=== PATIENT | female | born 1965 | race African-American/Black ===

== ENCOUNTER 2017-01-03 05:18 | Inpatient (IN) | payer OTHER ==
--- NOTE | 2017-01-02 16:32 | Diagnostic Imaging Report ---
Indications: Needs long-term IV access Technique: Ultrasound confirms patent compressible left brachial vein. Total sterile technique, including sterile probe cover and sterile gel, hat, mask,, sterile gown, large sterile drape, and preparation with 2% chlorhexidine utilized. Local anesthesia with 1% lidocaine. Under real-time ultrasound guidance, puncture brachial vein using 21-gauge needle, documented and archived, passage 0.018 guidewire under direct fluoroscopy, which was used to determine appropriate catheter length, exchange for 5 Filipino peel-away sheath. 5 Filipino Bard dual-lumen power PICC cut to 40 cm. It was inserted through the peel-away sheath. Peel-away sheath and guidewire removed. Catheter fixed to the skin. Both catheter ports aspirated and flushed. Patient tolerated procedure well, without immediate complication. Digital radiograph documents satisfactory catheter tip position, at the cavoatrial junction. Total fluoroscopy time 0.5 minutes. Total dose area product 34 dGycm2 Impression: Successful placement of PICC under sonographic and fluoroscopic guidance, as described above.
[~2017-01-03] VITALS: Ht 162.6 cm; Wt 76.2 kg
[2017-01-03] VITALS (12 sets, daily range): BP systolic 142–189; BP diastolic 67–92
[2017-01-03] MEDS ORDERED: XANAX2 MG ORAL (06:07)
[2017-01-03] MEDS ORDERED: SOMA350 MG PO (06:07)
[2017-01-03] MEDS ORDERED: Bacitracin 50000 Units Vial ONE ×2 (06:34→09:44)
[2017-01-03] MEDS ORDERED: Bupivacaine w/Epi 0.5% 30ml Vial INJ ONE (06:34)
[2017-01-03] MEDS ORDERED: fentaNYL 100 mcg/2 mL IV ONE (07:00)
[2017-01-03] MEDS ORDERED: Lidocaine 1% MPF 10mg/ml 5ml ONE (07:00)
[2017-01-03] MEDS ORDERED: Sodium Chloride 10ml vial INJ ONE (07:00)
[2017-01-03] MEDS ORDERED: LR 1000ml ONE (07:00)
[2017-01-03] MEDS ORDERED: NS Irrig 1000ml ONE (07:00)
[2017-01-03] MEDS ORDERED: Propofol 1,000mg/ 100ml btl IV ONE (07:00)
[2017-01-03] MEDS ORDERED: Sterile Water Irrig 1000ml IRRIG ONE (07:00)
[2017-01-03] MEDS ORDERED: Dexamethasone 4mg/ml vial ONE (07:00)
[2017-01-03] MEDS ORDERED: Alfentanil 2ml Inj ONE (07:00)
[2017-01-03] MEDS ORDERED: LR 1000ml 1,000 ML IVLG SCH (07:28)
--- NOTE | 2017-01-03 07:28 | Anethesia Preoperative Eval ---
Anesthesia Pre-op PMH/ROS General Date of Evaluation: Jan 03, 2017 Time of Evaluation: 07:11 Anesthesiologist: Brian ASA Score: ASA 3 Mallampati Score Class I : Soft palate, uvula, fauces, pillars visible Class II: Soft palate, uvula, fauces visible Class III: Soft palate, base of uvula visible Class IV: Only hard plate visible Mallampati Classification: Class III Surgeon: Omar Diagnosis: Cervical CA Surgical Procedure: Replacement IPG Anesthesia History: none Family History: no anesthesia problems Allergies: Coded Allergies: AMOXICILLIN (Verified Allergy, Severe, 01/03/17) HIVES HYDROMORPHONE (Verified Allergy, Severe, 01/03/17) GENERAL SKIN SORES PENICILLINS (Verified Allergy, Severe, 01/03/17) hives BUPROPION (Verified Allergy, Unknown, 01/08/10) IODINE (Verified Allergy, Unknown, 01/08/10) PAROXETINE (Verified Allergy, Unknown, 01/08/10) PHENYTOIN (Verified Allergy, Unknown, 01/08/10) Medications: see eMAR Past Medical History Cardiovascular: Reports: HTN Pulmonary: Reports: asthma Neurologic/Psychiatric: Reports: depression/anxiety, other - Seizures Hematology/Immune: Reports: anemia, other - Cervical CA Anesthesia Pre-op Phys. Exam Physician Exam Last Vital Signs Date Time Temp Pulse Resp B/P (MAP) Pulse Ox O2 Delivery O2 Flow Rate FiO2 01/03/17 06:17 97.1 60 18 142/71 99 Room Air Constitutional: NAD Neurologic: CN 2-12 intact Cardiovascular: RRR Respiratory: CTA Gastrointestinal: S/NT/ND Airway Exam Mallampati Score: Class III MO: limited ROM: limited Teeth: missing Anesthesia Pre-op A/P Risk Assessment & Plan Assessment: ASA 3 Plan: GA, BIS Status Change Before Surgery: No Pre-Antibiotics Dru grams Ancef IV Given Within 1 Hr of Incision: Yes Time Given: 07:21 Baldomero Torres MD Jan 03, 2017 07:28
[2017-01-03] MEDS ORDERED: Midazolam 2mg/2ml Inj IVP PRN (07:30)
[2017-01-03] MEDS ORDERED: Atropine Inj 1mg/10ml Syr IV PRN (07:30)
[2017-01-03] MEDS ORDERED: fentaNYL 100 mcg/2 mL IV PRN (07:30)
[2017-01-03] MEDS ORDERED: Ketorolac 30mg Inj IV PRN (07:30)
[2017-01-03] MEDS ORDERED: DiphenhydrAMINE 50mg/ml Inj IVP PRN (07:30)
[2017-01-03] MEDS ORDERED: LORazepam Inj 2mg/ml 1ml IV PRN ×2 (07:30→17:15)
[2017-01-03] MEDS ORDERED: Metoclopramide 10mg/2ml Inj IVP PRN (07:30)
[2017-01-03] MEDS ORDERED: Ketorolac 60mg Inj IV PRN (07:30)
[2017-01-03] MEDS ORDERED: Meperidine 25mg/0.5ml Inj (FOR RIGORS ONLY) IV PRN (07:30)
[2017-01-03] MEDS ORDERED: Pantoprazole Inj ONE (07:35)
--- NOTE | 2017-01-03 07:51 | Immediate Post-Op Evaluation ---
Immediate Post-Op Evalulation Immediate Post-Op Evalulation Procedure: Replacement IPG Date of Evaluation: Jan 03, 2017 Time of Evaluation: 09:33 IV Fluids: 500 LR Blood Products: 0 Estimated Blood Loss: 7 Urinary Output: 0 Blood Pressure Systolic: 143 Blood Pressure Diastolic: 86 Pulse Rate: 77 Respiratory Rate: 16 O2 Sat by Pulse Oximetry: 100 Temperature (Fahrenheit): 97.1 Pain Score (1-10): 3 Nausea: No Vomiting: No Complications 0 Patient Status: awake, reacts, patent, extubated, none Hydration Status: adequate Dru Grams Ancef IV Given Within 1 Hr of Incision: Yes Time Given: 07:21 Baldomero Torres MD Jan 03, 2017 07:51
--- NOTE | 2017-01-03 08:59 | Pre-Procedure Note/Attestation ---
Pre-Procedure Note/Attestation Complete Prior to Procedure Planned Procedure: right Procedure Narrative: her old drug delivery system has reached end of life and needs to be exchanged. Indications for Procedure Pre-Operative Diagnosis: chronic pain syndrome and history of CRPS Attestation I attest that I discussed the nature of the procedure; its benefits; risks and complications; and alternatives (and the risks and benefits of such alternatives ), prior to the procedure, with the patient (or the patient's legal veterans service representative). I attest that, if there was a reasonable possibility of needing a blood transfusion, the patient (or the patient's legal veterans service representative) was given the [place] Department [employer] Services standardized written summary, pursuant to the Mahendra [place] Blood Safety Act ([place] Health and Safety Code # 1645, as amended). I attest that I re-evaluated the patient just prior to the surgery and that there has been no change in the patient's H&P, except as documented below: JESSE JIMENEZ Jan 03, 2017 08:59
--- NOTE | 2017-01-03 09:24 | 48 Hour Post Anesthesia Eval ---
Post Anesthesia Evaluation Procedure: Replacement Pain Pump Date of Evaluation: Jan 03, 2017 Time of Evaluation: 11:46 Blood Pressure Systolic: 141 0: 72 Pulse Rate: 67 Respiratory Rate: 18 Temperature (Fahrenheit): 97.1 O2 Sat by Pulse Oximetry: 100 Airway: patent Nausea: No Vomiting: No Pain Intensity: 2 Hydration Status: adequate Cardiopulmonary Status: Stable Mental Status/LOC: patient returned to baseline Follow-up Care/Observations: 0 Post-Anesthesia Complications: 0 Follow-up care needed: ready to discharge Baldomero Torres MD Jan 03, 2017 09:24
[2017-01-03] MEDS ORDERED: D5 1/2NS w/KCl 20mEq 1,000 ML IV SCH (16:00)
[2017-01-03] MEDS: ceFAZolin sod 1 GM in D5W 55 ML IV SCH (16:28)
[2017-01-03] MEDS ORDERED: Zolpidem 5mg tab ORAL PRN ×2 (17:15→21:00)
[2017-01-03] MEDS ORDERED: Miralax 17gm pkt ORAL PRN (17:15)
[2017-01-03] MEDS ORDERED: Mylanta II UD 30ml ORAL PRN (17:15)
--- NOTE | 2017-01-03 17:18 | History and Physical ---
History of Present Illness General Date patient seen: Jan 03, 2017 Present Illness HPI 51 year old female with hx of chronic pain, migraine, admitted for replacement of IPG machine, since it reached end of its life. Post surgery, pt is complaining of migraine now. Allergies: Coded Allergies: AMOXICILLIN (Verified Allergy, Severe, 01/03/17) HIVES HYDROMORPHONE (Verified Allergy, Severe, 01/03/17) GENERAL SKIN SORES PENICILLINS (Verified Allergy, Severe, 01/03/17) hives BUPROPION (Verified Allergy, Unknown, 01/08/10) IODINE (Verified Allergy, Unknown, 01/08/10) PAROXETINE (Verified Allergy, Unknown, 01/08/10) PHENYTOIN (Verified Allergy, Unknown, 01/08/10) Medication History Scheduled Alprazolam* (Xanax*), 2 MG ORAL FOUR, (Reported) Carisoprodol* (Soma*), 350 MG PO Q4, (Reported) Patient History Healthcare decision maker Resuscitation status Full Code Advanced Directive on File No Past Medical/Surgical History Past Medical/Surgical History: (1) Chronic pain (2) Migraine (3) Fibromyalgia (4) Osteoarthritis cervical spine Review of Systems All Other Systems: negative except mentioned in HPI Physical Exam General Appearance: WD/WN Lines, tubes and drains: peripheral HEENT: normocephalic, atraumatic Neck: non-tender, normal alignment Respiratory/Chest: chest wall non-tender, lungs clear Cardiovascular/Chest: normal peripheral pulses, normal rate Abdomen: normal bowel sounds, non tender, hyperactive bowel sounds Genitourinary/Rectal: normal genital exam, heme negative stool Extremities: non-tender Last 24 Hour Vital Signs Date Time Temp Pulse Resp B/P (MAP) Pulse Ox O2 Delivery O2 Flow Rate FiO2 01/03/17 11:13 97.4 80 18 171/82 99 Nasal Cannula 2.0 01/03/17 10:20 97.4 70 25 151/67 100 Nasal Cannula 3.0 01/03/17 10:15 71 28 161/77 100 Nasal Cannula 3.0 01/03/17 10:10 182/89 01/03/17 10:05 77 25 179/71 100 Nasal Cannula 3.0 01/03/17 10:00 80 25 175/88 98 Nasal Cannula 3.0 01/03/17 09:50 75 24 187/92 99 Nasal Cannula 3.0 01/03/17 09:40 69 26 184/87 100 Simple Mask 6.0 01/03/17 09:40 184/87 01/03/17 09:30 71 21 189/90 99 Simple Mask 6.0 01/03/17 09:25 75 23 163/88 99 Simple Mask 6.0 01/03/17 09:24 67 18 100 01/03/17 09:22 97.1 77 19 143/86 99 Simple Mask 6.0 01/03/17 09:22 77 16 100 01/03/17 06:17 97.1 60 18 142/71 99 Room Air Intake and Output 01/03/17 01/04/17 19:00 07:00 Intake Total 850 ml Output Total 870 ml Balance -20 ml Intake IV Total 850 ml Output Urine Total 850 ml Estimated Blood Loss 20 ml Height (Feet): 5 Height (Inches): 4.00 Weight (Pounds): 168 Medications Current Medications Medications (Trade) Dose Ordered Sig/Aracelis Route PRN Reason Start Time Stop Time Status Last Admin Dose Admin Acetaminophen (Tylenol) 650 mg Q4H PRN ORAL fever 01/03/17 17:15 02/02/17 17:14 UNV Al Hydroxide/Mg Hydroxide (Mylanta II) 30 ml Q6H PRN ORAL dyspepsia 01/03/17 17:15 02/02/17 17:14 UNV Al Hydroxide/Mg Hydroxide (Mylanta) 15 ml Q6H PRN ORAL DYSPEPSIA 01/03/17 15:00 02/02/17 14:59 Cefazolin Sodium 1 gm/Dextrose 55 ml @ 110 mls/hr Q8H IV 01/03/17 16:30 01/04/17 00:59 01/03/17 16:28 Dextrose (Dextrose 50%) STAT PRN IV Hypoglycemia 01/03/17 17:15 02/02/17 17:14 UNV Dextrose/ Electrolytes 1,000 ml @ 0 mls/hr Q0M IV 01/03/17 16:00 02/02/17 15:59 Diphenhydramine HCl (Benadryl) 25 mg Q8H PRN ORAL Itching/Pruritis 01/03/17 15:00 02/02/17 14:59 Docusate Sodium (Colace) 100 mg TWICE A DAY ORAL 01/03/17 18:00 02/02/17 17:59 Lorazepam (Ativan 2mg/ml 1ml) 0.5 mg Q4H PRN IV For Anxiety 01/03/17 17:15 01/10/17 17:14 UNV Morphine Sulfate (Morphine Sulfate) 4 mg Q4H PRN IVP For Pain 01/03/17 15:00 01/10/17 14:59 Ondansetron HCl (Zofran) 4 mg Q6H PRN IVP Nausea & Vomiting 01/03/17 15:00 02/02/17 14:59 Ondansetron HCl (Zofran) 4 mg Q6H PRN IVP Nausea & Vomiting 01/03/17 17:15 02/02/17 17:14 UNV Polyethylene Glycol (Miralax) 17 gm HSPRN PRN ORAL Constipation 01/03/17 17:15 02/02/17 17:14 UNV Zolpidem Tartrate (Ambien) 5 mg HSPRN PRN ORAL Insomnia 01/03/17 17:15 01/10/17 17:14 UNV Zolpidem Tartrate (Ambien) 5 mg QHS PRN ORAL Insomnia 01/03/17 21:00 01/10/17 20:59 Assessment/Plan Problem List: (1) Replacement of IPG machine (2) Migraine ICD Codes: G43.909 - Migraine, unspecified, not intractable, without status migrainosus SNOMED: 35301508 (3) Fibromyalgia ICD Codes: M79.7 - Fibromyalgia SNOMED: 293993751 (4) Chronic pain ICD Codes: G89.29 - Other chronic pain SNOMED: 56275035 (5) Osteoarthritis cervical spine ICD Codes: M47.812 - Spondylosis without myelopathy or radiculopathy, cervical region SNOMED: 895226876 Assessment/Plan symptomatic treatment post op care imitrex for migraine ANSELMO UGARTE Jan 03, 2017 17:18
[2017-01-03] MEDS ORDERED: SUMAtriptan 100mg tab ORAL PRN (17:45)
[2017-01-03] MEDS: Imipramine 10mg tab ORAL SCH (18:30)
[2017-01-03] MEDS: Docusate 100mg cap ORAL SCH (18:30)
[2017-01-04] MEDS: Morphine Sulfate 4mg/ml Inj IVP PRN ×4 (00:10→14:53)
[2017-01-04] MEDS: ceFAZolin sod 1 GM in D5W 55 ML IV SCH (01:15)
[2017-01-04 04:00] VITALS: BP 163/86
[2017-01-04 07:29] LABS: ALANINE AMINOTRANSFERASE 10 U/L (3-33); ANION GAP 8 (5-15); ASPARTATE AMINO TRANSFERASE 12 U/L (5-40); CALCIUM 8.5 mg/dL (8.6-10.2); CARBON DIOXIDE 30 mEQ/L (20-30); CHLORIDE 103 mEQ/L (98-107); CHOLESTEROL 191 mg/dL (< 200); CHOLESTEROL/HDL RATIO 6.8 (3.3-4.4); CREATININE 0.8 mg/dL (0.5-0.9); GLOMERULAR FILTRATION RATE > 60 mL/min (>60); HEMOLYSIS 1; LDL CHOLESTEROL CALC 149 mg/dL (60-99); POTASSIUM 3.6 mEQ/L (3.4-4.9); SODIUM 141 mEQ/L (135-145); TOTAL PROTEIN 6.4 g/dL (6.6-8.7)
[2017-01-04 07:30] LABS: BASOPHILS % (AUTO) 0.7 % (0.0-2.0); EOSINOPHILS % (AUTO) 2.2 % (0.0-3.0); MEAN CORPUSCULAR HEMOGLOBIN 26.7 PG (27.0-31.0); MEAN CORPUSCULAR HGB CONC 32.2 G/DL (32.0-36.0); MEAN CORPUSCULAR VOLUME 83 FL (80-99); MEAN PLATELET VOLUME 7.1 FL (6.5-10.1); MONOCYTES % (AUTO) 7.1 % (1.0-10.0); NEUTROPHILS % (AUTO) 59.1 % (45.0-75.0); PLATELET COUNT 204 K/UL (150-450); RED BLOOD COUNT 4.38 M/UL (4.20-5.40); RED CELL DISTRIBUTION WIDTH 13.3 % (11.6-14.8); WHITE BLOOD COUNT 8.6 K/UL (4.8-10.8)
[2017-01-04 08:00] VITALS: BP 161/71
--- NOTE | 2017-01-04 08:00 | Operative Note - Dictated ---
DATE OF OPERATION: 01/03/2017 PREOPERATIVE DIAGNOSIS: End of life of implantable drug delivery pump. POSTOPERATIVE DIAGNOSIS: End of life of implantable drug delivery pump. PROCEDURE: Removal of old implantable drug delivery pump with replacement with new implantable drug delivery pump. COMPLICATIONS: None. ANESTHETIC: General anesthesia. ANESTHESIOLOGIST: Baldomero Torres M.D. SURGEON: Micky Nelson M.D. LVN HOME HEALTH: Jak Davis M.D. BLOOD LOSS: Negligible. INDICATION FOR PROCEDURE: The patient has a chronic drug intrathecal delivery system for pain control. It has reached end of life and she is admitted for removal of the old implantable pump and replacement with a new pump as the old pump has reached end of life. She understood potential complications to include bleeding, infection, seroma, and anesthetic complications. She signed informed consent and received 2 g of IV Ancef prior to the operative procedure. PROCEDURE IN DETAIL: The patient was brought to the operating room. She was placed supine. The abdomen was prepped and draped in meticulous sterile fashion. The implantable pump site was identified in the right upper quadrant/flank area and after thorough prep, the area was infiltrated with 10 mL of 0.5% bupivacaine with epinephrine. An #11 blade scalpel was then used to make an incision over the old scar. The subcutaneous tissue was dissected. The old pump was removed after cutting the 2-0 Ethibond sutures that had secured the pump in the pocket site. The old pump was removed from the incision without damaging the catheter. The old drug from the pump was aspirated and placed into the new pump, which was then primed on the side of the operating room table. Now waiting for the pump to prime, the pump site was irrigated copiously with antibiotic solution. Old suture was removed. Anchoring 2-0 Ethibond sutures were placed into the deep fascia. Once the pump was primed, the old pump was disconnected from the distal catheter and secured to the new implantable generator. At that point, the new generator was secured to the deep tissue, tying off with the 2-0 Ethibond sutures that we placed to the side loops of the pump. At that point, there was some further dissection to free up the edges and provide adequate space, and at that point, the incision was closed with interrupted 3-0 Vicryl and 3-0 Monocryl subcuticular sutures. Sterile dressings were applied. She will be admitted for overnight observation. She will be provided with prophylactic antibiotics. She is scheduled for pump refill on 01/24/2017. Micky Nelson M.D. DR: COMPA JOB#: [id number] CC: GOMEZ
[2017-01-04] MEDS: Imipramine 10mg tab ORAL SCH ×3 (09:00→12:53)
[2017-01-04] MEDS: Docusate 100mg cap ORAL SCH (09:46)
--- NOTE | 2017-01-04 15:05 | Pulmonology Progress Note ---
Assessment/Plan Problems: (1) Replacement of IPG machine (2) Migraine (3) Fibromyalgia (4) Chronic pain (5) Osteoarthritis cervical spine Assessment/Plan improving dc home with f/u with primary no Migraine any more Subjective ROS Limited/Unobtainable: No Constitutional: Reports: no symptoms HEENT: Repors: no symptoms Respiratory: Reports: no symptoms Allergies: Coded Allergies: AMOXICILLIN (Verified Allergy, Severe, 01/03/17) HIVES HYDROMORPHONE (Verified Allergy, Severe, 01/03/17) GENERAL SKIN SORES PENICILLINS (Verified Allergy, Severe, 01/03/17) hives BUPROPION (Verified Allergy, Unknown, 01/08/10) IODINE (Verified Allergy, Unknown, 01/08/10) PAROXETINE (Verified Allergy, Unknown, 01/08/10) PHENYTOIN (Verified Allergy, Unknown, 01/08/10) Objective Last 24 Hour Vital Signs Date Time Temp Pulse Resp B/P (MAP) Pulse Ox O2 Delivery O2 Flow Rate FiO2 01/04/17 10:16 98.0 01/04/17 09:47 161/71 01/04/17 08:00 98.0 18 161/71 96 Room Air 01/04/17 04:00 98.2 54 18 163/86 97 Room Air 01/04/17 00:11 176/74 01/03/17 20:00 97.6 57 18 174/79 97 Room Air General Appearance: WD/WN HEENT: normocephalic, atraumatic Respiratory/Chest: chest wall non-tender, lungs clear Cardiovascular: normal peripheral pulses, normal rate Abdomen: normal bowel sounds, soft, non tender Microbiology Date/Time Source Procedure Growth Status 01/03/17 08:00 Wound AFB Specimen Processing Tissue - Final Resulted 01/03/17 08:00 Wound Pending Resulted 01/03/17 08:00 Wound AFB Specimen Processing Tissue Pending Resulted 01/03/17 08:00 Wound AFB Smear Concentration Pending Resulted 01/03/17 08:00 Wound Pending Resulted 01/03/17 08:00 Wound Acid Fast Bacilli Smear - Final Resulted 01/03/17 08:00 Wound Pending Resulted 01/03/17 08:00 Wound Acid Fast Bacilli Culture Pending Resulted 01/03/17 08:00 Wound Acid Fast Bacilli (AFB) Probe Pending Resulted 01/03/17 08:00 Wound M. tuberculosis Complex Interpretat Pending Resulted 01/03/17 08:00 Wound Mycobacterium avium Complex Pending Resulted 01/03/17 08:00 Wound Mycobacterium k[place]ii DNA Probe (M Pending Resulted 01/03/17 08:00 Wound Mycobacterium gordanae DNA Probe (M Pending Resulted 01/03/17 08:00 Wound Acid Fast Bacilli (AFB) Probe Pending Resulted 01/03/17 08:00 Wound Organism ID (Sequencing)(CHICO) Pending Resulted 01/03/17 08:00 Wound Antimicrobic Susceptibility Pending Resulted 01/03/17 08:00 Wound Organism ID (Sequencing 2)(CHICO) Pending Resulted 01/03/17 08:00 Wound Pending Resulted 01/03/17 08:00 Wound Pending Resulted 01/03/17 08:00 Wound Pending Resulted 01/03/17 08:00 Wound Pending Resulted 01/03/17 08:00 Wound Pending Resulted 01/03/17 08:00 Wound Pending Resulted 01/03/17 08:00 Wound Pending Resulted 01/03/17 08:00 Wound Pending Resulted 01/03/17 08:00 Wound Pending Resulted 01/03/17 08:00 Wound Nocardia/Actinomyces Susceptibility Pending Resulted 01/03/17 08:00 Wound Organism Identification Pending Resulted 01/03/17 08:00 Wound Pending Resulted 01/03/17 08:00 Wound Pending Resulted 01/03/17 08:00 Wound Pending Resulted 01/03/17 08:00 Wound Pending Resulted 01/03/17 08:00 Wound Pending Resulted 01/03/17 08:00 Wound Pending Resulted 01/03/17 08:00 Wound Pending Resulted 01/03/17 08:00 Wound Pending Resulted 01/03/17 08:00 Wound Pending Resulted 01/03/17 08:00 Wound Pending Resulted 01/03/17 08:00 Wound Pending Resulted 01/03/17 08:00 Wound Pending Resulted 01/03/17 08:00 Wound Pending Resulted 01/03/17 08:00 Wound Pending Resulted 01/03/17 08:00 Wound Pending Resulted 01/03/17 08:00 Wound Pending Resulted 01/03/17 08:00 Wound Pending Resulted 01/03/17 08:00 Wound Pending Resulted 01/03/17 08:00 Wound Pending Resulted 01/03/17 08:00 Wound Pending Resulted 01/03/17 08:00 Wound Pending Resulted 01/03/17 08:00 Wound Pending Resulted 01/03/17 08:00 Wound Pending Resulted 01/03/17 08:00 Wound Pending Resulted 01/03/17 08:00 Wound Pending Resulted 01/03/17 08:00 Wound Pending Resulted 01/03/17 08:00 Wound Pending Resulted 01/03/17 08:00 Wound Pending Resulted 01/03/17 08:00 Wound Pending Resulted 01/03/17 08:00 Wound Acid Fast Bacilli (AFB) Probe Pending Resulted 01/03/17 08:00 Abdomen Gram Stain - Final Resulted 01/03/17 08:00 Abdomen Aerobic Culture - Preliminary NO GROWTH AFTER 24 HOURS Resulted 01/03/17 08:00 Abdomen Anaerobic Culture Pending Resulted Laboratory Tests 01/04/17 06:20: White Blood Count 8.6, Red Blood Count 4.38, Hemoglobin 11.7L, Hematocrit 36.3L , Mean Corpuscular Volume 83, Mean Corpuscular Hemoglobin 26.7L, Mean Corpuscular Hemoglobin Concent 32.2, Red Cell Distribution Width 13.3, Platelet Count 204, Mean Platelet Volume 7.1, Neutrophils (%) (Auto) 59.1, Lymphocytes (% ) (Auto) 31.0, Monocytes (%) (Auto) 7.1, Eosinophils (%) (Auto) 2.2, Basophils ( %) (Auto) 0.7, Sodium Level 141, Potassium Level 3.6, Chloride Level 103, Carbon Dioxide Level 30, Anion Gap 8, Blood Urea Nitrogen 10, Creatinine 0.8, Estimat Glomerular Filtration Rate > 60, Glucose Level 119H, Calcium Level 8.5L , Total Bilirubin < 0.2, Aspartate Amino Transf (AST/SGOT) 12, Alanine Aminotransferase (ALT/SGPT) 10, Alkaline Phosphatase 110H, Total Protein 6.4L, Albumin 3.2L, Globulin 3.2, Albumin/Globulin Ratio 1.0, Triglycerides Level 72, Cholesterol Level 191, LDL Cholesterol 149H, HDL Cholesterol 28, Cholesterol/ HDL Ratio 6.8H, Thyroid Stimulating Hormone (TSH) 1.440 Current Medications Medications (Trade) Dose Ordered Sig/Aracelis Route PRN Reason Start Time Stop Time Status Last Admin Dose Admin Acetaminophen (Tylenol) 650 mg Q4H PRN ORAL fever 01/03/17 17:15 02/02/17 17:14 Al Hydroxide/Mg Hydroxide (Mylanta II) 30 ml Q6H PRN ORAL dyspepsia 01/03/17 17:15 02/02/17 17:14 Clonidine HCl (Catapres) 0.1 mg Q6H PRN ORAL For High Blood Pressure 01/03/17 23:00 02/02/17 22:59 01/04/17 09:47 Dextrose (Dextrose 50%) STAT PRN IV Hypoglycemia 01/03/17 17:15 02/02/17 17:14 Dextrose/ Electrolytes 1,000 ml @ 0 mls/hr Q0M IV 01/03/17 16:00 02/02/17 15:59 Diphenhydramine HCl (Benadryl) 25 mg Q8H PRN ORAL Itching/Pruritis 01/03/17 15:00 02/02/17 14:59 Docusate Sodium (Colace) 100 mg TWICE A DAY ORAL 01/03/17 18:00 02/02/17 17:59 01/04/17 09:46 Imipramine HCl (Tofranil) 25 mg THREE TIMES A DAY ORAL 01/03/17 18:00 02/02/17 17:59 01/03/17 18:30 Lorazepam (Ativan 2mg/ml 1ml) 0.5 mg Q4H PRN IV For Anxiety 01/03/17 17:15 01/10/17 17:14 Morphine Sulfate (Morphine Sulfate) 4 mg Q4H PRN IVP For Pain 01/03/17 15:00 01/10/17 14:59 01/04/17 14:53 Ondansetron HCl (Zofran) 4 mg Q6H PRN IVP Nausea & Vomiting 01/03/17 15:00 02/02/17 14:59 01/04/17 12:49 Polyethylene Glycol (Miralax) 17 gm HSPRN PRN ORAL Constipation 01/03/17 17:15 02/02/17 17:14 Sumatriptan Succinate (Imitrex) 100 mg DAILYPRN PRN ORAL migraine 01/03/17 17:45 10/26/17 17:44 Zolpidem Tartrate (Ambien) 5 mg HSPRN PRN ORAL Insomnia 01/03/17 17:15 01/10/17 17:14 ANSELMO UGARTE Jan 04, 2017 15:05
[2017-01-04 16:10] VITALS: BP 163/82
--- NOTE | 2017-01-05 15:28 | Discharge Summary ---
Discharge Summary Hospital Course Date of Admission Jan 03, 2017 at 13:56 Date of Discharge Jan 04, 2017 at 16:31 Admitting Diagnosis HPI Christi Wan is a 51 year old female who was admitted on Jan 03, 2017 at 13: 56 for End Of Life Ipt / Poor Venous Access Hospital Course [id number] Discharge Discharge Disposition Patient was discharged to Home (01) Discharge Diagnoses: Ainsley Lan NP Jan 05, 2017 15:28
--- NOTE | 2017-01-06 03:45 | Discharge Summary 2 SIG ---
DATE OF ADMISSION: 01/03/2017 DATE OF DISCHARGE: 01/04/2017 SURGEON: Micky Nelson M.D. Brief Hospital Course: The patient is a 51-year-old female with history of chronic pain and migraine, was admitted for replacement of implantable delivery pump. The patient has chronic drug intrathecal delivery system for pain control and it has reached end of life. She was admitted on 01/03/2017 and underwent removal of old implantable drug delivery pump with replacement of a new implantable drug delivery pump by Dr. Nelson. Prior to surgery a PICC was inserted for IV access. She was continued on IV hydration. Diet was eventually advanced. PICC line was removed. The patient was eventually discharged home to follow up with primary MD. FINAL DIAGNOSES: 1. Replacement of implantable drug delivery pump. 2. Fibromyalgia. 3. Chronic pain. 4. Migraine headaches. 5. Osteoarthritis of the cervical spine. DISPOSITION: The patient was discharged home. DISCHARGE MEDICATIONS: Refer to medication list. FOLLOWUP: The patient was advised to follow up with PMD in a week. Oniel Macias M.D. I have been assigned to dictate discharge summary on this account and I was not involved in the patient's management. Ainsley Lan N.P. DR: KATLYN JOB#: [id number] CC: GOMEZ
== END 2017-01-04 16:31 | disposition home or self-care (01) | DRG 941 ==
LOC: SDS 05:18 → 3E 13:56
PROC: 0JH80VZ Insertion of Infusion Pump into Abdomen Subcutaneous Tissue and Fascia, Open Approach (ICD-10-PCS; principal; 2017-01-03 07:00)
PROC: 0JPT0VZ Removal of Infusion Pump from Trunk Subcutaneous Tissue and Fascia, Open Approach (ICD-10-PCS; principal; 2017-01-03 07:00)
DX: Z45.1 Encounter for adjustment and management of infusion pump (principal); I10 Essential (primary) hypertension; G89.4 Chronic pain syndrome; I87.2 Venous insufficiency (chronic) (peripheral); M47.892 Other spondylosis, cervical region; M47.896 Other spondylosis, lumbar region; E66.9 Obesity, unspecified; Z88.6 Allergy status to analgesic agent; Z88.0 Allergy status to penicillin; Z88.8 Allergy status to other drugs, medicaments and biological substances; M79.7 Fibromyalgia; G43.909 Migraine, unspecified, not intractable, without status migrainosus
CPT/HCPCS: 36415; 36569; 76937; 80053; 80061; 84443; 85025; 87070; 87075; 87116; 87205; 94003; 94150; J2405; J3490

== ENCOUNTER 2017-11-09 14:54 | Inpatient (IN) | payer MEDICARE, OTHER ==
[~2017-11-09] VITALS: Ht 162.6 cm; Wt 92.7 kg
[~2017-11-09 14:54] MED LIST: SOMA350 MG PO; XANAX2 MG ORAL
[2017-11-09 15:11] VITALS: BP 154/73
[2017-11-09] MEDS ORDERED: Lidocaine 1% Plain 30 ml INJ ONE (15:30)
[2017-11-09] MEDS ORDERED: Heparin 2000 units/Ns 1000ml INJ ONE (15:30)
[2017-11-09] MEDS: Dyna-Hex 2% Top Sol 2oz TOPIC SCH ×2 (15:46→20:38)
--- NOTE | 2017-11-09 16:41 | Pre-Procedure Note/Attestation ---
Pre-Procedure Note/Attestation Complete Prior to Procedure Planned Procedure: not applicable Procedure Narrative: PICC line Indications for Procedure Pre-Operative Diagnosis: need IV access Attestation I attest that I discussed the nature of the procedure; its benefits; risks and complications; and alternatives (and the risks and benefits of such alternatives ), prior to the procedure, with the patient (or the patient's legal sales representative uniforms). I attest that I re-evaluated the patient just prior to the surgery and that there has been no change in the patient's H&P, except as documented below: Iraj Kessler M.D. Nov 09, 2017 16:41
--- NOTE | 2017-11-09 17:02 | Diagnostic Imaging Report ---
Indications: Needs long-term IV access Technique: Ultrasound confirms patent compressible right basilic vein. Total sterile technique, including sterile probe cover and sterile gel, hat, mask,, sterile gown, large sterile drape, and preparation with 2% chlorhexidine utilized. Local anesthesia with 1% lidocaine. Under real-time ultrasound guidance, puncture the basilic vein using 21-gauge needle, documented and archived, passage 0.018 guidewire under direct fluoroscopy, which was used to determine appropriate catheter length, exchange for 5 Malaysian peel-away sheath. 5 Malaysian dual-lumen power PICC cut to 3 5 cm. It was inserted through the peel-away sheath. Peel-away sheath and guidewire removed. Catheter fixed to the skin. Both catheter ports aspirated and flushed. Patient tolerated procedure well, without immediate complication. Digital radiograph documents satisfactory catheter tip position, at the cavoatrial junction. Total fluoroscopy time 0.2 minutes. Total dose area product 13 dGycm2 Impression: Successful placement of 5 Malaysian double-lumen PICC under sonographic and fluoroscopic guidance, as described above.
[2017-11-09] MEDS ORDERED: Morphine Sulfate 2mg/ml Inj(IV/IM USE ONLY) IVP ONE (17:15)
--- NOTE | 2017-11-09 17:38 | Emergency Room Report ---
History of Present Illness General Chief Complaint: Pain Source: Patient Present Illness HPI 52 YO Female presents to the ED C/O 01/17 in severity exacerbation of her chronic back and neck pain x 4 days. pt. reports she is in pain management with Dr. Nelson and takes Morphine and Soma for her symptoms. pt. reports that possible epidural has been discussed as her pain is still not well controlled. pt. reports that she is ambulatory very slowly, however she is experiencing pain with attempts to sit on the toilet, getting into and out of her bed, and chairs. Pt. denies. saddle anesthesia. reports hx of uterine cancer. pt. reports that her morphine pump is not working as it should. reports multiple falls since last MRI, however aware per pt. Pt. reports requires a picc line. Pt. states that back injury is from workers comp. claim which just settled yesterday, and Dr. Nelson is unable to schedule her until next week. Pt. reports weakness with dexterity of both hands which has been progressive. Denies CP,SOB, sudden severe GRACE. denies abdominal pain. Allergies: Coded Allergies: AMOXICILLIN (Verified Allergy, Severe, 01/03/17) HIVES HYDROMORPHONE (Verified Allergy, Severe, 01/03/17) GENERAL SKIN SORES PENICILLINS (Verified Allergy, Severe, 01/03/17) hives BUPROPION (Verified Allergy, Unknown, 01/08/10) IODINE (Verified Allergy, Unknown, 01/08/10) PAROXETINE (Verified Allergy, Unknown, 01/08/10) PHENYTOIN (Verified Allergy, Unknown, 01/08/10) Patient History Past Medical History: see triage record, HTN, asthma, seizures Past Surgical History: other - intrathecal pump. Now: No Reviewed Nursing Documentation: PMH: Agreed; PSxH: Agreed Nursing Documentation-PMH Past Medical History: No History, Except For Hx Cardiac Problems: Yes Hx Hypertension: Yes Hx Asthma: Yes - SEASONAL Hx Cancer: Yes - UTERINE Hx Gastrointestinal Problems: Yes Hx Neurological Problems: Yes - HX MIGRAINES-LAST EPISODE A WEEK AGO Hx Seizures: Yes - LAST EPISODE AGE 26 Review of Systems All Other Systems: negative except mentioned in HPI Physical Exam Vital Signs Date Time Temp Pulse Resp B/P (MAP) Pulse Ox O2 Delivery O2 Flow Rate FiO2 11/09/17 15:03 98.2 54 22 154/73 95 Room Air 98.2 Sp02 EP Interpretation: reviewed, normal General Appearance: alert, GCS 15, non-toxic, mild distress Head: normocephalic, atraumatic ENT: hearing grossly normal, normal voice, other - ROM limited, pt. has torticolis to the left side. Neck: full range of motion, tender lateral - right lateral and midline cervical ttp. , tender midline Respiratory: chest non-tender, lungs clear, normal breath sounds, speaking full sentences Cardiovascular #1: regular rate, rhythm, no edema, normal capillary refill Genitourinary: other - no evidence of in continence. Musculoskeletal: back normal, normal range of motion, tender - TTP to the Lumbar spine midline and paraspinal bilaterally. Neurologic: alert, oriented x3, responsive, motor strength/tone normal, sensory intact, speech normal, other - Pt. has very staggared gait and uses assistive devices or door handles/arm of wheelchair. , grossly normal Psychiatric: judgement/insight normal Skin: normal color, no rash, warm/dry, well hydrated Medical Decision Making PA Attestation Dr. Garcia is my supervising Physician whom patient management has been discussed with. Diagnostic Impression: Primary Impression: Intractable back pain Additional Impressions: Cervical radiculopathy Fibromyalgia Chronic pain Qualified Codes: G89.4 - Chronic pain syndrome Physical tolerance to opiate drug Opiate dependence, continuous ER Course CC: 52 YO Female presents to the ED C/O 01/17 in severity exacerbation of her chronic back and neck pain x 4 days. pt. reports she is in pain management with Dr. Nelson and takes Morphine and Soma for her symptoms. pt. reports that possible epidural has been discussed as her pain is still not well controlled. pt. reports that she is ambulatory very slowly, however she is experiencing pain with attempts to sit on the toilet, getting into and out of her bed, and chairs. Pt. denies. saddle anesthesia. reports hx of uterine cancer. pt. reports that her morphine pump is not working as it should. reports multiple falls since last MRI, however aware per pt. Pt. reports requires a picc line. Pt. states that back injury is from workers comp. claim which just settled yesterday, and Dr. Nelson is unable to schedule her until next week. Pt. reports weakness with dexterity of both hands which has been progressive. Denies CP,SOB, sudden severe GRACE. denies abdominal pain. CURES REPORT: -2017-10-24 -CARISOPRODOL TAB 350 MG QTY 180, 30 day supply -2017-11-01 -ALPRAZOLAM TAB 2 MG QTY 67 - 2017-10-17 MORPHINE SULFATE POW QTY of 900 30 day supply All filled on the above dates, according to pharmacy /cures records pt. should not be out of her medications if she is taking them as prescribed. She should have adequate amount at this time. Ddx considered: epidural abscess, fracture, sprain/strain, meningitis, spinal chord injury, sciatica, cauda equina, Pyelonephritis, renal calculi just to name a few. Vital signs reviewed and are WNL during ED visit. Pt. is afebrile with no signs of infection No new symptoms other than pain unresponsive to previous methods, and pt. has depleted her allotment of pain medications this month. No saddle anesthesia noted, Pt. denies incontinence Neurovascular is intact ROM is limited due to pain and physical limitations * Tenderness to palpation to paraspinal muscles of the lower back with midline tenderness as well as cervical paraspinal muscles and midline. pain > on the right side of the posterior neck. pt. has some torticollis noted. pt. appears non-toxic and NAD. . *Pt. describes pain today as severe and radiates across the lower back. ORDERS: -CBC: Unremarkable -CMP: Unremarkable - UA: Pending INTERVENTIONS: - PICC line placement ordered -Morphine IVP Pt. reports she continues to have excruciating pain. D/w pt. that as her pain is uncontrolled at this time, and she is out of medications at home that she will be admitted for further evaluation, and control of her pain with strong opiate pain medication. d/w pt. will call Dr. Nelson DISPOSITION: at this time pt. will be admitted to Dr. Macias for intractable pain, opiate tolerance and dependence. Dr. Macias agreed to admit the pt. and to continue pt. care management. Labs Test 11/09/17 17:16 White Blood Count 6.8 K/UL (4.8-10.8) Red Blood Count 4.64 M/UL (4.20-5.40) Hemoglobin 11.8 G/DL (12.0-16.0) Hematocrit 36.4 % (37.0-47.0) Mean Corpuscular Volume 79 FL (80-99) Mean Corpuscular Hemoglobin 25.4 PG (27.0-31.0) Mean Corpuscular Hemoglobin Concent 32.3 G/DL (32.0-36.0) Red Cell Distribution Width 13.0 % (11.6-14.8) Platelet Count 191 K/UL (150-450) Mean Platelet Volume 7.7 FL (6.5-10.1) Neutrophils (%) (Auto) 46.7 % (45.0-75.0) Lymphocytes (%) (Auto) 39.9 % (20.0-45.0) Monocytes (%) (Auto) 7.2 % (1.0-10.0) Eosinophils (%) (Auto) 5.2 % (0.0-3.0) Basophils (%) (Auto) 1.0 % (0.0-2.0) Sodium Level 143 MMOL/L (136-145) Potassium Level 3.8 MMOL/L (3.5-5.1) Chloride Level 107 MMOL/L (98-107) Carbon Dioxide Level 29 MMOL/L (21-32) Anion Gap 7 mmol/L (5-15) Blood Urea Nitrogen 7 mg/dL (7-18) Creatinine 0.9 MG/DL (0.55-1.30) Estimat Glomerular Filtration Rate > 60 mL/min (>60) Glucose Level 111 MG/DL (74-106) Calcium Level 8.6 MG/DL (8.5-10.1) Total Bilirubin 0.2 MG/DL (0.2-1.0) Aspartate Amino Transf (AST/SGOT) 15 U/L (15-37) Alanine Aminotransferase (ALT/SGPT) 14 U/L (12-78) Alkaline Phosphatase 143 U/L (46-116) Total Protein 7.3 G/DL (6.4-8.2) Albumin 3.0 G/DL (3.4-5.0) Globulin 4.3 g/dL Albumin/Globulin Ratio 0.7 (1.0-2.7) Last Vital Signs Date Time Temp Pulse Resp B/P (MAP) Pulse Ox O2 Delivery O2 Flow Rate FiO2 11/09/17 15:11 98.2 84 22 154/73 95 Room Air 98.2 Disposition: ADMITTED INPATIENT Condition: Serious Referrals: Micky Nelson MD (PCP) Uma Kulkarni Nov 09, 2017 17:38
[2017-11-09 17:42] LABS: EOSINOPHILS % (AUTO) 5.2 % (0.0-3.0); HEMATOCRIT 36.4 % (37.0-47.0); HEMOGLOBIN 11.8 G/DL (12.0-16.0); LYMPHOCYTES % (AUTO) 39.9 % (20.0-45.0); MEAN CORPUSCULAR VOLUME 79 FL (80-99); MONOCYTES % (AUTO) 7.2 % (1.0-10.0); NEUTROPHILS % (AUTO) 46.7 % (45.0-75.0); PLATELET COUNT 191 K/UL (150-450); RED BLOOD COUNT 4.64 M/UL (4.20-5.40); WHITE BLOOD COUNT 6.8 K/UL (4.8-10.8)
[2017-11-09 17:58] LABS: ANION GAP 7 mmol/L (5-15); BLOOD UREA NITROGEN 7 mg/dL (7-18); CALCIUM 8.6 MG/DL (8.5-10.1); CARBON DIOXIDE 29 MMOL/L (21-32); CHLORIDE 107 MMOL/L (98-107); CREATININE 0.9 MG/DL (0.55-1.30); POTASSIUM 3.8 MMOL/L (3.5-5.1); SODIUM 143 MMOL/L (136-145)
[2017-11-09 18:03] LABS: ALANINE AMINOTRANSFERASE 14 U/L (12-78); ALBUMIN/GLOBULIN RATIO 0.7 (1.0-2.7); ALKALINE PHOSPHATASE 143 U/L (46-116); ASPARTATE AMINO TRANSFERASE 15 U/L (15-37); BILIRUBIN,TOTAL 0.2 MG/DL (0.2-1.0)
[2017-11-09 18:05] VITALS: BP 136/67
[2017-11-09 18:40] VITALS: BP 150/59
[2017-11-09] MEDS ORDERED: Mylanta II UD 30ml ORAL PRN (19:30)
[2017-11-09] MEDS ORDERED: Zolpidem 5mg tab ORAL PRN (19:30)
[2017-11-09] MEDS ORDERED: Miralax 17gm pkt ORAL PRN (19:30)
[2017-11-09] MEDS ORDERED: LORazepam Inj 2mg/ml 1ml IV PRN (19:30)
[2017-11-09] MEDS: Morphine Sulfate 4mg/ml Inj (IV USE ONLY) IVP PRN (20:39)
[2017-11-09] MEDS: Heparin 5000 units/ml inj SUBQ SCH (20:41)
[2017-11-09] MEDS ORDERED: HydrALAZINE 50mg tab ORAL PRN (20:45)
[2017-11-10] VITALS: BP 133/56
[2017-11-10] MEDS: Morphine Sulfate 4mg/ml Inj (IV USE ONLY) IVP PRN ×5 (01:12→22:33)
[2017-11-10] MEDS ORDERED: Morphine Sulfate 4mg/ml Inj (IV USE ONLY) IVP ONE (03:00)
[2017-11-10 04:00] VITALS: BP 97/66
[2017-11-10 06:38] LABS: EOSINOPHILS % (AUTO) 4.6 % (0.0-3.0); HEMATOCRIT 38.8 % (37.0-47.0); HEMOGLOBIN 12.3 G/DL (12.0-16.0); LYMPHOCYTES % (AUTO) 29.2 % (20.0-45.0); MEAN CORPUSCULAR VOLUME 80 FL (80-99); NEUTROPHILS % (AUTO) 59.2 % (45.0-75.0); PLATELET COUNT 193 K/UL (150-450); RED BLOOD COUNT 4.87 M/UL (4.20-5.40); RED CELL DISTRIBUTION WIDTH 12.8 % (11.6-14.8); WHITE BLOOD COUNT 7.6 K/UL (4.8-10.8)
[2017-11-10 07:07] LABS: ALANINE AMINOTRANSFERASE 23 U/L (12-78); ALBUMIN 3.1 G/DL (3.4-5.0); ALBUMIN/GLOBULIN RATIO 0.7 (1.0-2.7); ALKALINE PHOSPHATASE 139 U/L (46-116); ANION GAP 4 mmol/L (5-15); ASPARTATE AMINO TRANSFERASE 27 U/L (15-37); BILIRUBIN,TOTAL 0.3 MG/DL (0.2-1.0); BLOOD UREA NITROGEN 7 mg/dL (7-18); CALCIUM 8.3 MG/DL (8.5-10.1); CARBON DIOXIDE 31 MMOL/L (21-32); CHLORIDE 106 MMOL/L (98-107); CREATININE 0.9 MG/DL (0.55-1.30); POTASSIUM 3.8 MMOL/L (3.5-5.1); SODIUM 141 MMOL/L (136-145)
[2017-11-10 08:00] VITALS: BP 147/86
[2017-11-10] MEDS: Heparin 5000 units/ml inj SUBQ SCH ×2 (08:50→21:00)
[2017-11-10 12:00] VITALS: BP 143/76
--- NOTE | 2017-11-10 12:37 | Consultation ---
History of Present Illness General Date patient seen: Nov 10, 2017 Chief Complaint: Pain Present Illness HPI 52 year old female with chronic pain for the last 14 years presented to the ED with CC of pain 01/17 in severity exacerbation of her chronic back and neck pain x 4 days. pt. reports that her morphine pump is not working as it should. Pt. states that back injury is from workers comp. claim which just settled yesterday. Pt. reports weakness with dexterity of both hands which has been progressive. Allergies: Coded Allergies: AMOXICILLIN (Verified Allergy, Severe, 01/03/17) HIVES HYDROMORPHONE (Verified Allergy, Severe, 01/03/17) GENERAL SKIN SORES PENICILLINS (Verified Allergy, Severe, 01/03/17) hives BUPROPION (Verified Allergy, Unknown, 01/08/10) IODINE (Verified Allergy, Unknown, 01/08/10) PAROXETINE (Verified Allergy, Unknown, 01/08/10) PHENYTOIN (Verified Allergy, Unknown, 01/08/10) Medication History Scheduled Alprazolam* (Xanax*), 2 MG ORAL FOUR, (Reported) Carisoprodol* (Soma*), 350 MG PO Q4, (Reported) Patient History Healthcare decision maker Resuscitation status Full Code Advanced Directive on File Past Medical/Surgical History Past Medical/Surgical History: (1) Intractable back pain (2) Opiate dependence, continuous Review of Systems All Other Systems: negative except mentioned in HPI Physical Exam General Appearance: WD/WN Lines, tubes and drains: peripheral HEENT: normocephalic, atraumatic Neck: non-tender, normal alignment Respiratory/Chest: chest wall non-tender, lungs clear Breasts: no masses Cardiovascular/Chest: normal peripheral pulses, normal rate Abdomen: normal bowel sounds, non tender Last 24 Hour Vital Signs Date Time Temp Pulse Resp B/P (MAP) Pulse Ox O2 Delivery O2 Flow Rate FiO2 11/10/17 12:00 98.9 55 18 143/76 (98) 99 98.9 11/10/17 09:50 98.4 11/10/17 09:20 98.4 11/10/17 09:00 Room Air Room Air 11/10/17 08:00 98.4 53 17 147/86 (106) 95 98.4 11/10/17 07:47 97.0 11/10/17 06:48 97.0 11/10/17 04:00 97.0 53 21 97/66 (76) 97 97.0 11/10/17 03:32 97.0 11/10/17 03:02 97.0 11/10/17 01:12 97.0 11/10/17 00:00 97.1 49 20 133/56 (81) 100 97.1 11/09/17 22:42 Room Air 11/09/17 22:35 97.0 11/09/17 21:00 Room Air 11/09/17 20:45 50 150/59 11/09/17 18:40 97.0 50 20 150/59 (89) 100 97.0 11/09/17 18:21 98.3 46 22 136/67 95 Room Air 208.8 11/09/17 18:09 208.8 11/09/17 18:05 208.8 46 22 136/67 95 Room Air 208.8 11/09/17 17:30 98.2 11/09/17 15:11 98.2 84 22 154/73 95 Room Air 98.2 11/09/17 15:03 98.2 54 22 154/73 95 Room Air 98.2 Laboratory Tests Test 11/09/17 17:16 11/10/17 06:00 White Blood Count 6.8 K/UL (4.8-10.8) 7.6 K/UL (4.8-10.8) Red Blood Count 4.64 M/UL (4.20-5.40) 4.87 M/UL (4.20-5.40) Hemoglobin 11.8 G/DL (12.0-16.0) L 12.3 G/DL (12.0-16.0) Hematocrit 36.4 % (37.0-47.0) L 38.8 % (37.0-47.0) Mean Corpuscular Volume 79 FL (80-99) L 80 FL (80-99) Mean Corpuscular Hemoglobin 25.4 PG (27.0-31.0) L 25.3 PG (27.0-31.0) L Mean Corpuscular Hemoglobin Concent 32.3 G/DL (32.0-36.0) 31.7 G/DL (32.0-36.0) L Red Cell Distribution Width 13.0 % (11.6-14.8) 12.8 % (11.6-14.8) Platelet Count 191 K/UL (150-450) 193 K/UL (150-450) Mean Platelet Volume 7.7 FL (6.5-10.1) 8.0 FL (6.5-10.1) Neutrophils (%) (Auto) 46.7 % (45.0-75.0) 59.2 % (45.0-75.0) Lymphocytes (%) (Auto) 39.9 % (20.0-45.0) 29.2 % (20.0-45.0) Monocytes (%) (Auto) 7.2 % (1.0-10.0) 6.0 % (1.0-10.0) Eosinophils (%) (Auto) 5.2 % (0.0-3.0) H 4.6 % (0.0-3.0) H Basophils (%) (Auto) 1.0 % (0.0-2.0) 1.0 % (0.0-2.0) Sodium Level 143 MMOL/L (136-145) 141 MMOL/L (136-145) Potassium Level 3.8 MMOL/L (3.5-5.1) 3.8 MMOL/L (3.5-5.1) Chloride Level 107 MMOL/L (98-107) 106 MMOL/L (98-107) Carbon Dioxide Level 29 MMOL/L (21-32) 31 MMOL/L (21-32) Anion Gap 7 mmol/L (5-15) 4 mmol/L (5-15) L Blood Urea Nitrogen 7 mg/dL (7-18) 7 mg/dL (7-18) Creatinine 0.9 MG/DL (0.55-1.30) 0.9 MG/DL (0.55-1.30) Estimat Glomerular Filtration Rate > 60 mL/min (>60) > 60 mL/min (>60) Glucose Level 111 MG/DL (74-106) H 96 MG/DL (74-106) Calcium Level 8.6 MG/DL (8.5-10.1) 8.3 MG/DL (8.5-10.1) L Total Bilirubin 0.2 MG/DL (0.2-1.0) 0.3 MG/DL (0.2-1.0) Aspartate Amino Transf (AST/SGOT) 15 U/L (15-37) 27 U/L (15-37) Alanine Aminotransferase (ALT/SGPT) 14 U/L (12-78) 23 U/L (12-78) Alkaline Phosphatase 143 U/L (46-116) H 139 U/L (46-116) H Total Protein 7.3 G/DL (6.4-8.2) 7.4 G/DL (6.4-8.2) Albumin 3.0 G/DL (3.4-5.0) L 3.1 G/DL (3.4-5.0) L Globulin 4.3 g/dL 4.3 g/dL Albumin/Globulin Ratio 0.7 (1.0-2.7) L 0.7 (1.0-2.7) L Thyroid Stimulating Hormone (TSH) 2.940 uiU/mL (0.358-3.740) Height (Feet): 5 Height (Inches): 4.00 Weight (Pounds): 200 Medications Current Medications Medications (Trade) Dose Ordered Sig/Aracelis Route PRN Reason Start Time Stop Time Status Last Admin Dose Admin Acetaminophen (Tylenol) 650 mg Q4H PRN ORAL fever 11/09/17 19:30 12/09/17 19:29 Al Hydroxide/Mg Hydroxide (Mylanta II) 30 ml Q6H PRN ORAL dyspepsia 11/09/17 19:30 12/09/17 19:29 Carisoprodol (Soma) 350 mg EVERY 8 HOURS ORAL 11/09/17 22:00 12/09/17 21:59 11/10/17 06:48 Chlorhexidine Gluconate (Janiya-Hex 2%) 1 applic DAILY@1999 TOPIC 11/09/17 20:00 12/09/17 19:59 11/09/17 20:38 Dextrose (Dextrose 50%) STAT PRN IV Hypoglycemia 11/09/17 19:30 12/09/17 19:29 Heparin Sodium (Porcine) (Heparin 5000 units/ml) 5,000 units EVERY 12 HOURS SUBQ 11/09/17 21:00 12/09/17 20:59 Hydralazine HCl (Apresoline) 50 mg Q6H PRN ORAL Systolic BP>160 11/09/17 20:45 12/09/17 20:44 Lorazepam (Ativan 2mg/ml 1ml) 0.5 mg Q4H PRN IV For Anxiety 11/09/17 19:30 11/16/17 19:29 Morphine Sulfate (Morphine Sulfate) 4 mg Q4H PRN IVP For Pain 11/09/17 20:30 11/16/17 20:29 11/10/17 09:20 Ondansetron HCl (Zofran) 4 mg Q6H PRN IVP Nausea & Vomiting 11/09/17 19:30 12/09/17 19:29 Polyethylene Glycol (Miralax) 17 gm HSPRN PRN ORAL Constipation 11/09/17 19:30 12/09/17 19:29 Zolpidem Tartrate (Ambien) 5 mg HSPRN PRN ORAL Insomnia 11/09/17 19:30 11/16/17 19:29 Assessment/Plan Problem List: (1) Intractable back pain ICD Codes: M54.9 - Dorsalgia, unspecified SNOMED: 641229134 (2) Physical tolerance to opiate drug ICD Codes: F11.90 - Opioid use, unspecified, uncomplicated SNOMED: 28673773493261 (3) Cervical radiculopathy ICD Codes: M54.12 - Radiculopathy, cervical region SNOMED: 63717474 Assessment/Plan pain management symptomatic treatment pt/ot dvt prophylaxis Oniel Macias MD Nov 10, 2017 12:37
[2017-11-10 16:00] VITALS: BP 150/80
--- NOTE | 2017-11-10 17:25 | History & Physical ---
History and Physical History & Physicial Dictated for Int Med-Dr Archer no. [id number] Micky Gallegos MD Nov 10, 2017 17:25
[2017-11-10 20:00] VITALS: BP 148/64
--- NOTE | 2017-11-10 23:15 | History and Physical Report ---
DATE OF ADMISSION: 11/09/2017 CHIEF COMPLAINT: The patient is a 52-year-old female, who presents with chief complaint of low back pain. HISTORY OF PRESENT ILLNESS: The patient has a history of work-related injury. The patient is followed as an outpatient by pain management. The patient was awaiting authorization for epidural injections. The patient states she went to court on 11/06/2017. The patient states the ride was "bumpy". The patient began to have low back pain. Pain radiates to the bilateral legs. The patient become increasingly painful over the last two days. The patient now states the pain is 10/10 in intensity. The patient presents with a chief complaint of intractable back pain. PAST MEDICAL HISTORY: Significant for 1. Hypertension. 2. Asthma. 3. Cervical radiculopathy. 4. Fibromyalgia. 5. Reflex sympathetic dystrophy. 6. Complex regional pain syndrome. PAST SURGICAL HISTORY: Significant for 1. Exploratory laparotomy secondary to endometriosis. 2. Bilateral oophorectomy. 3. Total abdominal hysterectomy at age 24 secondary to endometriosis secondary to cervical cancer. CURRENT MEDICATIONS: 1. Xanax 2 mg p.o. q.6 h. p.r.n. 2. Soma 350 mg p.o. q.4 h. p.r.n. ALLERGIES: 1. Amoxicillin. 2. Dilaudid. 3. Penicillin. 4. Wellbutrin. 5. Iodine dye. 6. Paroxetine. 7. Phenytoin. SOCIAL HISTORY: The patient is single. The patient is disabled. The patient admits to occasional tobacco use. The patient denies alcohol use. REVIEW OF SYSTEMS: CONSTITUTIONAL: The patient denies weight loss or weight gain. The patient denies fever or chills. HEENT: The patient denies ear or throat pain. The patient denies headache. CARDIOVASCULAR: The patient denies palpitations or chest pain. CHEST: The patient denies wheeze or shortness of breath. ABDOMEN: The patient denies nausea, vomiting, diarrhea, or constipation. GENITOURINARY: The patient denies dysuria or increased frequency of urination. NEUROMUSCULAR: The patient complains of back pain as above. The patient denies seizures or generalized weakness. PHYSICAL EXAMINATION: GENERAL: The patient is a well-developed and well-nourished female, in no apparent distress. VITAL SIGNS: Temperature 98.4 degrees, respirations 17, pulse 53, and blood pressure 147/86. HEENT: Eyes, pupils equal and responsive to light and accommodation. Extraocular movements are intact. NECK: Supple without lymphadenopathy. CHEST: Lungs are clear to auscultation bilaterally without wheezes or rales. CARDIOVASCULAR: Regular rhythm and rate. S1 and S2 normal without murmurs, rubs, or gallops. ABDOMEN: Soft, nontender, and nondistended. Positive bowel sounds. No evidence of hepatosplenomegaly. Currently, no rebound or guarding noted. EXTREMITIES: Negative for clubbing, cyanosis, or edema. RECTAL: Refused. GENITAL: Refused. NEUROLOGIC: Cranial nerves II through XII are grossly intact without focal deficits. Motor strength is 5/5 bilaterally. Deep tendon reflexes are 2+ plantar. LABORATORY AND DIAGNOSTIC DATA: WBC 6.8, hemoglobin 11.8, hematocrit 36.4 and platelets 194,000. Sodium 143, potassium 3.8, chloride 107, CO2 29, BUN 7, creatinine 0.9 and glucose 111. Urinalysis is pending. ASSESSMENT: This is a 52-year-old female 1. Lumbar spine pain. 2. Lumbar radiculopathy. 3. Hypertension. 4. Asthma. 5. Cervical radiculopathy. 6. Fibromyalgia. 7. Reflex sympathetic dystrophy. 8. Complex regional pain syndrome. TREATMENT: 1. Lumbar pain/radiculopathy. An Orthopedic consultation is pending with Dr. Greenfield. We will follow recommendations of Dr. Greenfield. 2. Hypertension. The patient will be offered clonidine 0.1 mg p.o. q.4 h. p.r.n. systolic greater than 150 or diastolic greater than 100. 3. Asthma. The patient be offered albuterol metered-dose inhaler two puffs p.o. q.i.d. p.r.n. 4. Cervical radiculopathy. A pain management consultation is pending. 5. Fibromyalgia. 6. Reflex sympathetic dystrophy. 7. Complex regional pain syndrome. Micky Gallegos M.D. DR: BASILIO JOB#: [id number] CC:
[2017-11-11] VITALS: BP 116/53
[2017-11-11] MEDS: Morphine Sulfate 4mg/ml Inj (IV USE ONLY) IVP PRN ×5 (03:16→20:12)
[2017-11-11 04:00] VITALS: BP 152/75
[2017-11-11 06:12] LABS: BASOPHILS % (AUTO) 0.6 % (0.0-2.0); EOSINOPHILS % (AUTO) 4.3 % (0.0-3.0); HEMATOCRIT 36.9 % (37.0-47.0); HEMOGLOBIN 12.3 G/DL (12.0-16.0); LYMPHOCYTES % (AUTO) 34.1 % (20.0-45.0); MEAN CORPUSCULAR VOLUME 79 FL (80-99); MONOCYTES % (AUTO) 7.4 % (1.0-10.0); NEUTROPHILS % (AUTO) 53.6 % (45.0-75.0); PLATELET COUNT 176 K/UL (150-450); RED BLOOD COUNT 4.65 M/UL (4.20-5.40); RED CELL DISTRIBUTION WIDTH 12.6 % (11.6-14.8); WHITE BLOOD COUNT 6.2 K/UL (4.8-10.8)
[2017-11-11 06:17] LABS: ANION GAP 4 mmol/L (5-15); BLOOD UREA NITROGEN 9 mg/dL (7-18); CALCIUM 8.4 MG/DL (8.5-10.1); CARBON DIOXIDE 31 MMOL/L (21-32); CHLORIDE 107 MMOL/L (98-107); CREATININE 0.8 MG/DL (0.55-1.30); POTASSIUM 3.5 MMOL/L (3.5-5.1); SODIUM 142 MMOL/L (136-145)
[2017-11-11 08:00] VITALS: BP 166/87
[2017-11-11] MEDS: Heparin 5000 units/ml inj SUBQ SCH ×2 (08:30→20:18)
[2017-11-11 12:00] VITALS: BP 132/82
--- NOTE | 2017-11-11 12:48 | Internal Med Progress Note ---
Subjective Date of Service: Nov 11, 2017 Physician Name Micky Gallegos Attending Physician Jesse Archer MD Current Medications Medications (Trade) Dose Ordered Sig/Aracelis Route PRN Reason Start Time Stop Time Status Last Admin Dose Admin Acetaminophen (Tylenol) 650 mg Q4H PRN ORAL fever 11/09/17 19:30 12/09/17 19:29 Al Hydroxide/Mg Hydroxide (Mylanta II) 30 ml Q6H PRN ORAL dyspepsia 11/09/17 19:30 12/09/17 19:29 Carisoprodol (Soma) 350 mg EVERY 8 HOURS ORAL 11/09/17 22:00 12/09/17 21:59 11/10/17 14:47 Chlorhexidine Gluconate (Janiya-Hex 2%) 1 applic DAILY@1999 TOPIC 11/09/17 20:00 12/09/17 19:59 11/09/17 20:38 Dextrose (Dextrose 50%) STAT PRN IV Hypoglycemia 11/09/17 19:30 12/09/17 19:29 Heparin Sodium (Porcine) (Heparin 5000 units/ml) 5,000 units EVERY 12 HOURS SUBQ 11/09/17 21:00 12/09/17 20:59 Hydralazine HCl (Apresoline) 50 mg Q6H PRN ORAL Systolic BP>160 11/09/17 20:45 12/09/17 20:44 Lorazepam (Ativan 2mg/ml 1ml) 0.5 mg Q4H PRN IV For Anxiety 11/09/17 19:30 11/16/17 19:29 Morphine Sulfate (Morphine Sulfate) 4 mg Q4H PRN IVP For Pain 11/09/17 20:30 11/16/17 20:29 11/11/17 11:46 Ondansetron HCl (Zofran) 4 mg Q6H PRN IVP Nausea & Vomiting 11/09/17 19:30 12/09/17 19:29 11/11/17 07:35 Polyethylene Glycol (Miralax) 17 gm HSPRN PRN ORAL Constipation 11/09/17 19:30 12/09/17 19:29 Zolpidem Tartrate (Ambien) 5 mg HSPRN PRN ORAL Insomnia 11/09/17 19:30 11/16/17 19:29 Allergies: Coded Allergies: AMOXICILLIN (Verified Allergy, Severe, 01/03/17) HIVES HYDROMORPHONE (Verified Allergy, Severe, 01/03/17) GENERAL SKIN SORES PENICILLINS (Verified Allergy, Severe, 01/03/17) hives BUPROPION (Verified Allergy, Unknown, 01/08/10) IODINE (Verified Allergy, Unknown, 01/08/10) PAROXETINE (Verified Allergy, Unknown, 01/08/10) PHENYTOIN (Verified Allergy, Unknown, 01/08/10) ROS Limited/Unobtainable: No Constitutional: Reports: no symptoms HEENT: Reports: no symptoms Cardiovascular: Reports: no symptoms Respiratory: Reports: no symptoms Gastrointestinal/Abdominal: Reports: no symptoms Genitourinary: Reports: no symptoms Neurologic/Psychiatric: Reports: no symptoms Subjective 52 YO F with chief complaint low back pain. Cover for Int Med-Dr Archer. Await pain management consult. Objective Last Vital Signs Date Time Temp Pulse Resp B/P (MAP) Pulse Ox O2 Delivery O2 Flow Rate FiO2 11/11/17 11:46 97.2 11/11/17 09:00 Room Air Room Air 11/11/17 08:00 58 20 166/87 (113) 97 General Appearance: WD/WN, no apparent distress, alert EENT: PERRL/EOMI, normal ENT inspection Neck: non-tender, normal alignment, supple, normal inspection Cardiovascular: normal peripheral pulses, normal rate, regular rhythm, no gallop/murmur, no JVD Respiratory/Chest: chest wall non-tender, lungs clear, normal breath sounds, no respiratory distress, no accessory muscle use Abdomen: normal bowel sounds, non tender, soft, no organomegaly, no mass Extremities: normal range of motion, non-tender Neurologic: disability aide II-XII grossly normal, no motor/sensory deficits Skin: normal pigmentation, warm/dry Laboratory Tests Test 11/11/17 05:50 White Blood Count 6.2 K/UL (4.8-10.8) Red Blood Count 4.65 M/UL (4.20-5.40) Hemoglobin 12.3 G/DL (12.0-16.0) Hematocrit 36.9 % (37.0-47.0) L Mean Corpuscular Volume 79 FL (80-99) L Mean Corpuscular Hemoglobin 26.3 PG (27.0-31.0) L Mean Corpuscular Hemoglobin Concent 33.2 G/DL (32.0-36.0) Red Cell Distribution Width 12.6 % (11.6-14.8) Platelet Count 176 K/UL (150-450) Mean Platelet Volume 7.7 FL (6.5-10.1) Neutrophils (%) (Auto) 53.6 % (45.0-75.0) Lymphocytes (%) (Auto) 34.1 % (20.0-45.0) Monocytes (%) (Auto) 7.4 % (1.0-10.0) Eosinophils (%) (Auto) 4.3 % (0.0-3.0) H Basophils (%) (Auto) 0.6 % (0.0-2.0) Sodium Level 142 MMOL/L (136-145) Potassium Level 3.5 MMOL/L (3.5-5.1) Chloride Level 107 MMOL/L (98-107) Carbon Dioxide Level 31 MMOL/L (21-32) Anion Gap 4 mmol/L (5-15) L Blood Urea Nitrogen 9 mg/dL (7-18) Creatinine 0.8 MG/DL (0.55-1.30) Estimat Glomerular Filtration Rate > 60 mL/min (>60) Glucose Level 105 MG/DL (74-106) Calcium Level 8.4 MG/DL (8.5-10.1) L Assessment/Plan Problem List: (1) HTN (hypertension) Assessment & Plan: Continue hydralazine (2) Asthma (3) Reflex sympathetic dystrophy (4) Complex regional pain syndrome (5) Intractable back pain Assessment & Plan: Continue morphine. Await pain management consult. ? epidural injection? (6) Cervical radiculopathy (7) Opiate dependence, continuous Status: progressing Micky Gallegos MD Nov 11, 2017 12:48
[2017-11-11] MEDS ORDERED: Gadavist 7.5mMol/7.5ml vial IV PRN ×2 (13:30)
[2017-11-11 16:00] VITALS: BP 134/75
[2017-11-11 20:00] VITALS: BP_SYST 119; BP_SYST 144; BP_DIAS 76; BP_DIAS 77
[2017-11-11] MEDS: Dyna-Hex 2% Top Sol 2oz TOPIC SCH (20:11)
[2017-11-12] VITALS (7 sets, daily range): BP systolic 114–159; BP diastolic 69–78
[2017-11-12] MEDS: Morphine Sulfate 4mg/ml Inj (IV USE ONLY) IVP PRN ×6 (00:11→21:28)
[2017-11-12 06:04] LABS: HEMATOCRIT 39.1 % (37.0-47.0); HEMOGLOBIN 12.5 G/DL (12.0-16.0); LYMPHOCYTES % (AUTO) 41.5 % (20.0-45.0); MEAN CORPUSCULAR VOLUME 80 FL (80-99); MONOCYTES % (AUTO) 6.5 % (1.0-10.0); NEUTROPHILS % (AUTO) 45.9 % (45.0-75.0); PLATELET COUNT 171 K/UL (150-450); RED CELL DISTRIBUTION WIDTH 12.8 % (11.6-14.8); WHITE BLOOD COUNT 6.4 K/UL (4.8-10.8)
[2017-11-12 06:30] LABS: ANION GAP 4 mmol/L (5-15); BLOOD UREA NITROGEN 7 mg/dL (7-18); CALCIUM 8.6 MG/DL (8.5-10.1); CARBON DIOXIDE 31 MMOL/L (21-32); CHLORIDE 106 MMOL/L (98-107); CREATININE 0.9 MG/DL (0.55-1.30); POTASSIUM 3.7 MMOL/L (3.5-5.1); SODIUM 141 MMOL/L (136-145)
[2017-11-12] MEDS: Heparin 5000 units/ml inj SUBQ SCH ×2 (08:36→20:27)
--- NOTE | 2017-11-12 10:04 | Consultation ---
History of Present Illness General Date patient seen: Nov 12, 2017 Present Illness Allergies: Coded Allergies: AMOXICILLIN (Verified Allergy, Severe, 01/03/17) HIVES HYDROMORPHONE (Verified Allergy, Severe, 01/03/17) GENERAL SKIN SORES PENICILLINS (Verified Allergy, Severe, 01/03/17) hives BUPROPION (Verified Allergy, Unknown, 01/08/10) IODINE (Verified Allergy, Unknown, 01/08/10) PAROXETINE (Verified Allergy, Unknown, 01/08/10) PHENYTOIN (Verified Allergy, Unknown, 01/08/10) Medication History Scheduled Alprazolam* (Xanax*), 2 MG ORAL FOUR, (Reported) Carisoprodol* (Soma*), 350 MG PO Q4, (Reported) Patient History Healthcare decision maker Resuscitation status Full Code Advanced Directive on File Physical Exam Last 24 Hour Vital Signs Date Time Temp Pulse Resp B/P (MAP) Pulse Ox O2 Delivery O2 Flow Rate FiO2 11/12/17 08:34 98.2 11/12/17 04:43 98.2 11/12/17 04:13 98.2 11/12/17 04:00 97.4 84 18 134/69 (90) 98 97.4 11/12/17 00:50 98.2 51 19 118/74 (89) 98 98.2 11/12/17 00:11 97.5 11/11/17 23:05 97.5 11/11/17 22:06 97.5 11/11/17 21:00 Room Air 11/11/17 20:12 97.5 11/11/17 20:00 98.1 51 20 144/76 (98) 98 98.1 11/11/17 16:00 97.5 51 22 134/75 (94) 97 97.5 11/11/17 15:49 97.4 11/11/17 12:00 97.4 52 19 132/82 (99) 97 97.4 11/11/17 11:46 97.2 Intake and Output 11/11/17 11/12/17 19:00 07:00 Intake Total 640 ml 240 ml Balance 640 ml 240 ml Intake Oral 640 ml 240 ml # Voids 5 2 Laboratory Tests Test 11/12/17 05:45 White Blood Count 6.4 K/UL (4.8-10.8) Red Blood Count 4.90 M/UL (4.20-5.40) Hemoglobin 12.5 G/DL (12.0-16.0) Hematocrit 39.1 % (37.0-47.0) Mean Corpuscular Volume 80 FL (80-99) Mean Corpuscular Hemoglobin 25.4 PG (27.0-31.0) L Mean Corpuscular Hemoglobin Concent 31.9 G/DL (32.0-36.0) L Red Cell Distribution Width 12.8 % (11.6-14.8) Platelet Count 171 K/UL (150-450) Mean Platelet Volume 8.4 FL (6.5-10.1) Neutrophils (%) (Auto) 45.9 % (45.0-75.0) Lymphocytes (%) (Auto) 41.5 % (20.0-45.0) Monocytes (%) (Auto) 6.5 % (1.0-10.0) Eosinophils (%) (Auto) 5.0 % (0.0-3.0) H Basophils (%) (Auto) 1.0 % (0.0-2.0) Sodium Level 141 MMOL/L (136-145) Potassium Level 3.7 MMOL/L (3.5-5.1) Chloride Level 106 MMOL/L (98-107) Carbon Dioxide Level 31 MMOL/L (21-32) Anion Gap 4 mmol/L (5-15) L Blood Urea Nitrogen 7 mg/dL (7-18) Creatinine 0.9 MG/DL (0.55-1.30) Estimat Glomerular Filtration Rate > 60 mL/min (>60) Glucose Level 94 MG/DL (74-106) Calcium Level 8.6 MG/DL (8.5-10.1) Height (Feet): 5 Height (Inches): 4.00 Weight (Pounds): 200 Medications Current Medications Medications (Trade) Dose Ordered Sig/Aracelis Route PRN Reason Start Time Stop Time Status Last Admin Dose Admin Acetaminophen (Tylenol) 650 mg Q4H PRN ORAL fever 11/09/17 19:30 12/09/17 19:29 Al Hydroxide/Mg Hydroxide (Mylanta II) 30 ml Q6H PRN ORAL dyspepsia 11/09/17 19:30 12/09/17 19:29 Carisoprodol (Soma) 350 mg EVERY 8 HOURS ORAL 11/09/17 22:00 12/09/17 21:59 11/11/17 22:06 Chlorhexidine Gluconate (Janiya-Hex 2%) 1 applic DAILY@1999 TOPIC 11/09/17 20:00 12/09/17 19:59 11/11/17 20:11 Dextrose (Dextrose 50%) STAT PRN IV Hypoglycemia 11/09/17 19:30 12/09/17 19:29 Gadobutrol (Gadavist) 7.5 mmol NOW PRN IV Radiology Procedure 11/11/17 13:30 11/15/17 13:22 Gadobutrol (Gadavist) 7.5 mmol NOW PRN IV Radiology Procedure 11/11/17 13:30 11/15/17 13:22 Heparin Sodium (Porcine) (Heparin 5000 units/ml) 5,000 units EVERY 12 HOURS SUBQ 11/09/17 21:00 12/09/17 20:59 Hydralazine HCl (Apresoline) 50 mg Q6H PRN ORAL Systolic BP>160 11/09/17 20:45 12/09/17 20:44 Lorazepam (Ativan 2mg/ml 1ml) 0.5 mg Q4H PRN IV For Anxiety 11/09/17 19:30 11/16/17 19:29 Morphine Sulfate (Morphine Sulfate) 4 mg Q4H PRN IVP For Pain 11/09/17 20:30 11/16/17 20:29 11/12/17 08:34 Ondansetron HCl (Zofran) 4 mg Q6H PRN IVP Nausea & Vomiting 11/09/17 19:30 12/09/17 19:29 11/12/17 02:27 Polyethylene Glycol (Miralax) 17 gm HSPRN PRN ORAL Constipation 11/09/17 19:30 12/09/17 19:29 Zolpidem Tartrate (Ambien) 5 mg HSPRN PRN ORAL Insomnia 11/09/17 19:30 11/16/17 19:29 Assessment/Plan Assessment/Plan (1) Cervical Spondylosis (2) Cervical DDD (3) Cervical Radiculopathy (4) Lumbar Spondylosis (5) Lumbar DDD (6) Lumbar Radiculopathy seen dictated Abelardo Hawk Nov 12, 2017 10:04
--- NOTE | 2017-11-12 13:45 | Internal Med Progress Note ---
Subjective Date of Service: Nov 12, 2017 Physician Name Gallegos,Micky Attending Physician Jesse Archer MD Current Medications Medications (Trade) Dose Ordered Sig/Aracelis Route PRN Reason Start Time Stop Time Status Last Admin Dose Admin Acetaminophen (Tylenol) 650 mg Q4H PRN ORAL fever 11/09/17 19:30 12/09/17 19:29 Al Hydroxide/Mg Hydroxide (Mylanta II) 30 ml Q6H PRN ORAL dyspepsia 11/09/17 19:30 12/09/17 19:29 Carisoprodol (Soma) 350 mg EVERY 8 HOURS ORAL 11/09/17 22:00 12/09/17 21:59 11/12/17 12:01 Chlorhexidine Gluconate (Janiya-Hex 2%) 1 applic DAILY@1999 TOPIC 11/09/17 20:00 12/09/17 19:59 11/11/17 20:11 Dextrose (Dextrose 50%) STAT PRN IV Hypoglycemia 11/09/17 19:30 12/09/17 19:29 Gadobutrol (Gadavist) 7.5 mmol NOW PRN IV Radiology Procedure 11/11/17 13:30 11/15/17 13:22 Gadobutrol (Gadavist) 7.5 mmol NOW PRN IV Radiology Procedure 11/11/17 13:30 11/15/17 13:22 Heparin Sodium (Porcine) (Heparin 5000 units/ml) 5,000 units EVERY 12 HOURS SUBQ 11/09/17 21:00 12/09/17 20:59 Hydralazine HCl (Apresoline) 50 mg Q6H PRN ORAL Systolic BP>160 11/09/17 20:45 12/09/17 20:44 Lorazepam (Ativan 2mg/ml 1ml) 0.5 mg Q4H PRN IV For Anxiety 11/09/17 19:30 11/16/17 19:29 Morphine Sulfate (Morphine Sulfate) 4 mg Q4H PRN IVP For Pain 11/09/17 20:30 11/16/17 20:29 11/12/17 13:26 Ondansetron HCl (Zofran) 4 mg Q6H PRN IVP Nausea & Vomiting 11/09/17 19:30 12/09/17 19:29 11/12/17 12:01 Polyethylene Glycol (Miralax) 17 gm HSPRN PRN ORAL Constipation 8/2/18 19:30 12/09/17 19:29 Zolpidem Tartrate (Ambien) 5 mg HSPRN PRN ORAL Insomnia 11/09/17 19:30 11/16/17 19:29 Allergies: Coded Allergies: AMOXICILLIN (Verified Allergy, Severe, 01/03/17) HIVES HYDROMORPHONE (Verified Allergy, Severe, 01/03/17) GENERAL SKIN SORES PENICILLINS (Verified Allergy, Severe, 01/03/17) hives BUPROPION (Verified Allergy, Unknown, 01/08/10) IODINE (Verified Allergy, Unknown, 01/08/10) PAROXETINE (Verified Allergy, Unknown, 01/08/10) PHENYTOIN (Verified Allergy, Unknown, 01/08/10) ROS Limited/Unobtainable: No Constitutional: Reports: no symptoms HEENT: Reports: no symptoms Cardiovascular: Reports: no symptoms Respiratory: Reports: no symptoms Gastrointestinal/Abdominal: Reports: no symptoms Genitourinary: Reports: no symptoms Neurologic/Psychiatric: Reports: no symptoms Subjective 52 YO F with chief complaint low back pain. Cover for Int Med-Dr Archer. Await MRI cervical and lumbar spine Objective Last Vital Signs Date Time Temp Pulse Resp B/P (MAP) Pulse Ox O2 Delivery O2 Flow Rate FiO2 11/12/17 13:26 98.2 11/12/17 12:00 56 18 159/76 (103) 98 11/12/17 09:00 Room Air Laboratory Tests Test 11/12/17 05:45 White Blood Count 6.4 K/UL (4.8-10.8) Red Blood Count 4.90 M/UL (4.20-5.40) Hemoglobin 12.5 G/DL (12.0-16.0) Hematocrit 39.1 % (37.0-47.0) Mean Corpuscular Volume 80 FL (80-99) Mean Corpuscular Hemoglobin 25.4 PG (27.0-31.0) L Mean Corpuscular Hemoglobin Concent 31.9 G/DL (32.0-36.0) L Red Cell Distribution Width 12.8 % (11.6-14.8) Platelet Count 171 K/UL (150-450) Mean Platelet Volume 8.4 FL (6.5-10.1) Neutrophils (%) (Auto) 45.9 % (45.0-75.0) Lymphocytes (%) (Auto) 41.5 % (20.0-45.0) Monocytes (%) (Auto) 6.5 % (1.0-10.0) Eosinophils (%) (Auto) 5.0 % (0.0-3.0) H Basophils (%) (Auto) 1.0 % (0.0-2.0) Sodium Level 141 MMOL/L (136-145) Potassium Level 3.7 MMOL/L (3.5-5.1) Chloride Level 106 MMOL/L (98-107) Carbon Dioxide Level 31 MMOL/L (21-32) Anion Gap 4 mmol/L (5-15) L Blood Urea Nitrogen 7 mg/dL (7-18) Creatinine 0.9 MG/DL (0.55-1.30) Estimat Glomerular Filtration Rate > 60 mL/min (>60) Glucose Level 94 MG/DL (74-106) Calcium Level 8.6 MG/DL (8.5-10.1) Intake and Output 11/11/17 11/12/17 19:00 07:00 Intake Total 640 ml 240 ml Balance 640 ml 240 ml Intake Oral 640 ml 240 ml # Voids 5 2 Objective General Appearance: WD/WN, no apparent distress, alert EENT: PERRL/EOMI, normal ENT inspection Neck: non-tender, normal alignment, supple, normal inspection Cardiovascular: normal peripheral pulses, normal rate, regular rhythm, no gallop/murmur, no JVD Respiratory/Chest: chest wall non-tender, lungs clear, normal breath sounds, no respiratory distress, no accessory muscle use Abdomen: normal bowel sounds, non tender, soft, no organomegaly, no mass Extremities: normal range of motion, non-tender Neurologic: internet sourcer II-XII grossly normal, no motor/sensory deficits Skin: normal pigmentation, warm/dry Assessment/Plan Problem List: (1) HTN (hypertension) Assessment & Plan: Continue hydralazine (2) Asthma (3) Reflex sympathetic dystrophy (4) Complex regional pain syndrome (5) Intractable back pain Assessment & Plan: Continue morphine. Await pain management consult. ? epidural injection?-see pain management note. Epidural would need auth from worker's comp. (6) Cervical radiculopathy (7) Opiate dependence, continuous Status: not improved Micky Gallegos MD Nov 12, 2017 13:45
--- NOTE | 2017-11-12 14:25 | Cardiology Report ---
APPROVED REPORT EKG Measurement Heart [id number] Normal sinus rhythm Normal ECG
[2017-11-12] MEDS: Dyna-Hex 2% Top Sol 2oz TOPIC SCH (21:05)
[2017-11-13] VITALS (8 sets, daily range): BP systolic 141–202; BP diastolic 63–75
--- NOTE | 2017-11-13 01:00 | Consultation ---
DATE OF CONSULTATION: 11/12/2017 PAIN MANAGEMENT CONSULTATION CONSULTING PHYSICIAN: London Smith M.D. REFERRING PHYSICIAN: Oniel Macias M.D. PHYSICIAN PERINATAL NURSE: Nilo Gipson CHIEF COMPLAINT: Neck pain and low back pain. HISTORY OF PRESENT ILLNESS: This is a 52-year-old female who has been seen on the medical/surgical floor of [facility] for initial comprehensive pain management consultation. The patient reports that she has been having neck and low back pain for many years due to work injury, being seen by Dr. Micky Nelson as an outpatient, has an intrathecal pain pump that is where she receives morphine from as well as getting Tylenol No. 3 as needed twice a day. She was admitted under the care of Dr. Archer and Dr. Gallegos due to increased pain in her neck and lower back and will be going for MRI of the cervical and lumbar spine with and without contrast tomorrow to further assess the patient's pathology. At this time, the patient is given 4 mg IV every 4 hours as needed for pain in addition to the morphine intrathecal pump. Once the MRIs are reviewed, we will reassess the patient's condition and treat. PAST MEDICAL HISTORY: Hypertension and asthma. PAST SURGICAL HISTORY: Exploratory laparotomy due to endometriosis, bilateral oophorectomy, and total abdominal hysterectomy. SOCIAL HISTORY: Denies smoking tobacco, drinking alcohol, or drug abuse. ALLERGIES: Amoxicillin, Dilaudid, penicillin, Wellbutrin, iodine, paroxetine, and phenytoin. REVIEW OF SYSTEMS: Denies rash, fever, chills, sweating, dizziness, drowsiness, blurred vision, sore throat, or change in weight. No shortness of breath or chest pain. No nausea, vomiting, diarrhea, or blood in the stool or urine. No bowel or bladder incontinence. No dysuria. He is complaining of neck and low back pain. PHYSICAL EXAMINATION: GENERAL: Alert, awake, and oriented. VITAL SIGNS: Blood pressure 134/69, heart rate is 84, oxygen saturation is 98%, respiratory rate is 18, and temperature is 97.4 degrees Fahrenheit. HEENT: PERRLA. NECK: Range of motion is decreased tenderness to paracervical muscles. No adenopathy. LUNGS: Decreased breath sounds bilaterally. HEART: S1 and S2 regular. ABDOMEN: Obese with intrathecal pump noted and scars seen. BACK: Range of motion is decreased in flexion and extension with tenderness to paraspinous and trapezius muscles. EXTREMITIES: Upper and lower extremity range of motion is full in all directions. No cyanosis. No clubbing. Sensory is reduced. Reflexes are not obtainable. No adenopathy. ASSESSMENT AND PLAN: The patient is a 52-year-old female with cervical and lumbar spondylosis, cervical and lumbar degenerative disk disease, and cervical and lumbar radiculopathy. The patient will be continued on morphine 4 mg IV every 4 hours as needed for pain with an intrathecal pain pump, which the patient receives morphine from. The patient will be going for MRI of the cervical and lumbar spine with and without contrast tomorrow to rule out further pathology in the neck and lower back, which will be reviewed and the patient's condition and treatment will be reassessed at that time. The patient was discussed with the labor conciliator. The patient as well was discussed with Dr. Smith who concurred. We will follow up with the patient. Thank you very much for the courtesy of this consultation. London Smith M.D. SHELL Gipson DR: ALEXA JOB#: [id number] CC: GOMEZ
[2017-11-13] MEDS: Morphine Sulfate 4mg/ml Inj (IV USE ONLY) IVP PRN ×5 (01:34→21:01)
--- NOTE | 2017-11-13 07:54 | General Progress Note ---
Assessment/Plan Assessment/Plan (1) Cervical Spondylosis (2) Cervical DDD (3) Cervical Radiculopathy (4) Lumbar Spondylosis (5) Lumbar DDD (6) Lumbar Radiculopathy Patient will be continued on Morphine IV, and intrathecal morphine pump. MRI results pending. Once reviewed we will reassess her condition and treatment options. D/w Dr. Smith and he concurred. Subjective Date patient seen: Nov 13, 2017 Time patient seen: 07:15 - am Allergies: Coded Allergies: AMOXICILLIN (Verified Allergy, Severe, 01/03/17) HIVES HYDROMORPHONE (Verified Allergy, Severe, 01/03/17) GENERAL SKIN SORES PENICILLINS (Verified Allergy, Severe, 01/03/17) hives BUPROPION (Verified Allergy, Unknown, 01/08/10) IODINE (Verified Allergy, Unknown, 01/08/10) PAROXETINE (Verified Allergy, Unknown, 01/08/10) PHENYTOIN (Verified Allergy, Unknown, 01/08/10) Subjective REVIEW OF SYSTEMS: Denies rash, fever, chills, sweating, dizziness, drowsiness, blurred vision, sore throat, or change in weight. No shortness of breath or chest pain. No nausea, vomiting, diarrhea, or blood in the stool or urine. No bowel or bladder incontinence. No dysuria. She is complaining of neck and low back pain. SUBJECTIVE: Patient is in bed smiling no signs of pain or distress. Continues to c/o severe pain in her neck and lower back requesting epidural injections. She has continued Morphine through Intrathecal pump and requesting Morphine IV 6 doses in the last 24hrs. I explained to patient once MRIs are performed and reviewed we will asses her condition and treatment options. She understands. Objective Last 24 Hour Vital Signs Date Time Temp Pulse Resp B/P (MAP) Pulse Ox O2 Delivery O2 Flow Rate FiO2 11/13/17 07:10 98.2 11/13/17 06:51 50 149/69 (95) 11/13/17 06:11 98.2 11/13/17 05:57 98.2 11/13/17 05:27 98.2 11/13/17 04:59 98.2 51 18 164/73 (103) 100 98.2 11/13/17 01:34 98.4 11/13/17 00:24 98.4 57 18 141/72 (95) 98 98.4 11/12/17 22:33 98.8 11/12/17 21:28 98.8 11/12/17 21:00 Room Air 11/12/17 20:25 98.8 55 18 150/78 (102) 98 98.8 11/12/17 17:29 98.3 11/12/17 16:00 98.3 53 18 114/77 (89) 98 98.3 11/12/17 13:26 98.2 11/12/17 12:01 98.2 11/12/17 12:00 98.4 56 18 159/76 (103) 98 98.4 11/12/17 09:00 Room Air 11/12/17 08:34 98.2 11/12/17 08:00 98.0 80 18 130/70 (90) 98 98.0 Intake and Output 11/12/17 11/13/17 19:00 07:00 Intake Total 800 ml 360 ml Balance 800 ml 360 ml Intake Oral 800 ml 360 ml # Voids 4 3 Height (Feet): 5 Height (Inches): 4.00 Weight (Pounds): 200 Objective GENERAL: Alert, awake, and oriented. HEENT: PERRLA. NECK: Range of motion is decreased with tenderness to paracervical muscles. No adenopathy. LUNGS: Decreased breath sounds bilaterally. HEART: S1 and S2 regular. ABDOMEN: Obese. EXTREMITIES: No cyanosis. No clubbing. NEURO: No changes. Abelardo Hawk Nov 13, 2017 07:54
[2017-11-13] MEDS: Heparin 5000 units/ml inj SUBQ SCH ×2 (09:00→21:00)
--- NOTE | 2017-11-13 11:23 | Diagnostic Imaging Report ---
Indication: 52-year-old female with chronic low back and neck pain, history of cervical radiculopathy Technique: Sagittal T1 FLAIR PROPELLER, sagittal T2 PROPELLOR, sagittal STIR, axial T2 PROPELLER, axial 3D COSMIC ASPIR images were obtained through the cervical spine Comparison: none Findings: There is slight straightening of the normal cervical lordosis. Otherwise normal bony alignment. Vertebral body marrow signal is normal. Intrinsic cord signal is normal. At C2-3, no significant disc bulge or protrusion, spinal stenosis, or neural foraminal stenosis. At C3-4, circumferential annular bulge results in moderate narrowing of the spinal canal with slight impingement on the anterior aspect of the cord. There is mild narrowing of the bilateral neural foramina. The disc spaces preserved. At C4-5, there is mild degenerative disc narrowing. There is also right paracentral disc protrusion. The disc bulge results in mild spinal stenosis. The disc protrusion may impinge slightly upon the right lateral aspect of the anterior cord. The neural foramina demonstrate mild narrowing bilaterally At C5-6, there is minimal circumferential annular bulge. This results in borderline narrowing of the spinal canal. The neural foramina are preserved. At C6-7, there is circumferential annular bulge which results in mild to moderate narrowing of the spinal canal but no significant cord impingement. There is mild narrowing of the neural foramina bilaterally. At C7-T1, no significant disc bulge or protrusion, spinal stenosis, or neural foraminal stenosis. The disc space is preserved. There is equivocally a nodule in the right thyroid lobe which measures up to 17 mm in diameter if real. The included extraspinal soft tissues are otherwise unremarkable. Impression: Multifocal degenerative changes, as detailed above, including spinal stenosis at C3-4, spinal stenosis and right paracentral disc protrusion at C4-5 Incidental finding of possible right thyroid lobe nodule. Consider ultrasound for further evaluation
--- NOTE | 2017-11-13 11:23 | Internal Med Progress Note ---
Subjective Date of Service: Nov 13, 2017 Physician Name RosyMicky Attending Physician Jesse Archer MD Current Medications Medications (Trade) Dose Ordered Sig/Aracelis Route PRN Reason Start Time Stop Time Status Last Admin Dose Admin Acetaminophen (Tylenol) 650 mg Q4H PRN ORAL fever 11/09/17 19:30 12/09/17 19:29 Al Hydroxide/Mg Hydroxide (Mylanta II) 30 ml Q6H PRN ORAL dyspepsia 11/09/17 19:30 12/09/17 19:29 Carisoprodol (Soma) 350 mg EVERY 8 HOURS ORAL 11/09/17 22:00 12/09/17 21:59 11/13/17 06:11 Chlorhexidine Gluconate (Janiya-Hex 2%) 1 applic DAILY@1999 TOPIC 11/09/17 20:00 12/09/17 19:59 11/12/17 21:05 Dextrose (Dextrose 50%) STAT PRN IV Hypoglycemia 11/09/17 19:30 12/09/17 19:29 Gadobutrol (Gadavist) 7.5 mmol NOW PRN IV Radiology Procedure 11/11/17 13:30 11/15/17 13:22 Gadobutrol (Gadavist) 7.5 mmol NOW PRN IV Radiology Procedure 11/11/17 13:30 11/15/17 13:22 Heparin Sodium (Porcine) (Heparin 5000 units/ml) 5,000 units EVERY 12 HOURS SUBQ 11/09/17 21:00 12/09/17 20:59 Hydralazine HCl (Apresoline) 50 mg Q6H PRN ORAL Systolic BP>160 11/09/17 20:45 12/09/17 20:44 Lorazepam (Ativan 2mg/ml 1ml) 0.5 mg Q4H PRN IV For Anxiety 11/09/17 19:30 11/16/17 19:29 Morphine Sulfate (Morphine Sulfate) 4 mg Q4H PRN IVP For Pain 11/09/17 20:30 11/16/17 20:29 11/13/17 11:12 Ondansetron HCl (Zofran) 4 mg Q6H PRN IVP Nausea & Vomiting 11/09/17 19:30 12/09/17 19:29 11/13/17 06:17 Polyethylene Glycol (Miralax) 17 gm HSPRN PRN ORAL Constipation 8/2/18 19:30 12/09/17 19:29 Zolpidem Tartrate (Ambien) 5 mg HSPRN PRN ORAL Insomnia 11/09/17 19:30 11/16/17 19:29 Allergies: Coded Allergies: AMOXICILLIN (Verified Allergy, Severe, 01/03/17) HIVES HYDROMORPHONE (Verified Allergy, Severe, 01/03/17) GENERAL SKIN SORES PENICILLINS (Verified Allergy, Severe, 01/03/17) hives BUPROPION (Verified Allergy, Unknown, 01/08/10) IODINE (Verified Allergy, Unknown, 01/08/10) PAROXETINE (Verified Allergy, Unknown, 01/08/10) PHENYTOIN (Verified Allergy, Unknown, 01/08/10) ROS Limited/Unobtainable: No Constitutional: Reports: no symptoms HEENT: Reports: no symptoms Cardiovascular: Reports: no symptoms Respiratory: Reports: no symptoms Gastrointestinal/Abdominal: Reports: no symptoms Genitourinary: Reports: no symptoms Neurologic/Psychiatric: Reports: no symptoms Subjective 52 YO F with chief complaint low back pain. Cover for Int Med-Dr Archer. Await MRI cervical and lumbar spine results. Refusing blood pressure meds and physical therapy Objective Last Vital Signs Date Time Temp Pulse Resp B/P (MAP) Pulse Ox O2 Delivery O2 Flow Rate FiO2 11/13/17 09:00 Room Air 11/13/17 08:00 98.2 66 20 188/75 (112) 98 98.2 Intake and Output 11/12/17 11/13/17 19:00 07:00 Intake Total 800 ml 360 ml Balance 800 ml 360 ml Intake Oral 800 ml 360 ml # Voids 4 3 Objective General Appearance: WD/WN, no apparent distress, alert EENT: PERRL/EOMI, normal ENT inspection Neck: non-tender, normal alignment, supple, normal inspection Cardiovascular: normal peripheral pulses, normal rate, regular rhythm, no gallop/murmur, no JVD Respiratory/Chest: chest wall non-tender, lungs clear, normal breath sounds, no respiratory distress, no accessory muscle use Abdomen: normal bowel sounds, non tender, soft, no organomegaly, no mass Extremities: normal range of motion, non-tender Neurologic: 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 See pain management consult. Awiat epidural injection by CT-see pain management note. (6) Cervical radiculopathy (7) Opiate dependence, continuous Status: stable Micky Gallegos MD Nov 13, 2017 11:23
--- NOTE | 2017-11-13 11:33 | Diagnostic Imaging Report ---
Indication: Chronic low back and neck pain Technique: Sagittal T1 and T2 fast spin echo, sagittal STIR, axial T1 and T2 fast spin-echo images of the lumbar spine Comparison: none Findings: There is a mild scoliotic deformity. Bony alignment is otherwise unremarkable. There are Modic type II endplate changes of the L5 vertebral body, and minimal Modic type I changes of the L2 inferior endplate. Vertebral body marrow signal is otherwise unremarkable. The conus medullaris terminates at the inferior aspect of L1. At L1-2, there is degenerative facet arthrosis on the left, which results in mild narrowing of the left neural foramen. No significant disc bulge or protrusion or spinal stenosis. At L2-3, there is mild degenerative disc narrowing. There is minimal circumferential annular bulge which results in borderline narrowing of the spinal canal, exacerbated by short pedicles. Facet arthrosis results in minimal compromise of the bilateral neural foramina. At L3-4, the disc space is preserved. No significant disc bulge or protrusion. Short pedicles and mild bilateral facet arthrosis result in borderline narrowing of the spinal canal. The neural foramina are preserved. At L4-5, the disc space is preserved. There is mild circumferential annular bulge. This, in combination with short pedicles, results in mild to moderate spinal stenosis at this level. There is also contribution by bilateral facet hypertrophy. The neural foramina are preserved. At L5-S1, the disc space is preserved. There is circumferential annular bulge, as well as right paracentral and some foraminal disc protrusion. There is also bilateral facet and ligamentum flavum hypertrophy. These factors result in at least moderate narrowing of the spinal canal, both AP and transverse. There is also likely significant impingement upon the right lateral recess There is moderate stenosis of the neural foramina bilaterally. There is a somewhat irregularly-shaped 14 x 7 mm cyst in the right kidney Impression: No acute bony trauma Degenerative changes, as detailed on a level by level basis above Mild scoliotic deformity Right renal cyst. In view of the somewhat irregular shape, further evaluation with ultrasound should be considered
[2017-11-13] MEDS: Dyna-Hex 2% Top Sol 2oz TOPIC SCH (20:00)
[2017-11-14] VITALS: BP 144/71
[2017-11-14] MEDS: Morphine Sulfate 4mg/ml Inj (IV USE ONLY) IVP PRN ×6 (01:08→23:50)
[2017-11-14 04:00] VITALS: BP 158/71
[2017-11-14 06:22] LABS: BASOPHILS % (AUTO) 1.4 % (0.0-2.0); EOSINOPHILS % (AUTO) 3.4 % (0.0-3.0); HEMATOCRIT 37.7 % (37.0-47.0); HEMOGLOBIN 12.3 G/DL (12.0-16.0); LYMPHOCYTES % (AUTO) 40.1 % (20.0-45.0); MEAN CORPUSCULAR VOLUME 80 FL (80-99); MONOCYTES % (AUTO) 7.6 % (1.0-10.0); NEUTROPHILS % (AUTO) 47.5 % (45.0-75.0); PLATELET COUNT 160 K/UL (150-450); RED BLOOD COUNT 4.71 M/UL (4.20-5.40); RED CELL DISTRIBUTION WIDTH 12.6 % (11.6-14.8); WHITE BLOOD COUNT 7.7 K/UL (4.8-10.8)
[2017-11-14 06:56] LABS: ANION GAP 6 mmol/L (5-15); BLOOD UREA NITROGEN 9 mg/dL (7-18); CALCIUM 8.4 MG/DL (8.5-10.1); CARBON DIOXIDE 31 MMOL/L (21-32); CHLORIDE 105 MMOL/L (98-107); POTASSIUM 3.7 MMOL/L (3.5-5.1); SODIUM 142 MMOL/L (136-145)
--- NOTE | 2017-11-14 07:50 | General Progress Note ---
Assessment/Plan Assessment/Plan (1) Cervical Spondylosis (2) Cervical DDD (3) Cervical Radiculopathy (4) Lumbar Spondylosis (5) Lumbar DDD (6) Lumbar Radiculopathy Patient will be continued on Morphine IV, and intrathecal morphine pump. At this time due to Commodity Specialist ordering another pain specialist to see the patient for epidural injection, we will sign off from seeing the patient at this time due this. Epidural injection and continued treatment as per Dr. Fan. D/w Dr. Smith and he concurred. Subjective Date patient seen: Nov 14, 2017 Time patient seen: 08:00 - am Allergies: Coded Allergies: AMOXICILLIN (Verified Allergy, Severe, 01/03/17) HIVES HYDROMORPHONE (Verified Allergy, Severe, 01/03/17) GENERAL SKIN SORES PENICILLINS (Verified Allergy, Severe, 01/03/17) hives BUPROPION (Verified Allergy, Unknown, 01/08/10) IODINE (Verified Allergy, Unknown, 01/08/10) PAROXETINE (Verified Allergy, Unknown, 01/08/10) PHENYTOIN (Verified Allergy, Unknown, 01/08/10) Subjective REVIEW OF SYSTEMS: Denies rash, fever, chills, sweating, dizziness, drowsiness, blurred vision, sore throat, or change in weight. No shortness of breath or chest pain. No nausea, vomiting, diarrhea, or blood in the stool or urine. No bowel or bladder incontinence. No dysuria. She is complaining of neck and low back pain. SUBJECTIVE: Patient is in bed no signs of pain or distress. MRIs were reviewed with patient. Dr. Gallegos has requested Dr. Fan to perform epidural injections. Objective Last 24 Hour Vital Signs Date Time Temp Pulse Resp B/P (MAP) Pulse Ox O2 Delivery O2 Flow Rate FiO2 11/14/17 04:00 97.3 52 18 158/71 (100) 99 97.3 11/14/17 00:00 98.3 48 18 144/71 (95) 99 98.3 11/13/17 22:00 150/70 (96) 11/13/17 21:00 Room Air 11/13/17 20:00 99.0 53 19 202/68 (112) 98 99.0 11/13/17 16:00 97.5 51 18 170/63 (98) 98 97.5 11/13/17 12:00 97.7 57 20 163/68 (99) 98 97.7 11/13/17 09:00 Room Air 11/13/17 08:00 98.2 66 20 188/75 (112) 98 98.2 Intake and Output 11/13/17 11/14/17 19:00 07:00 Intake Total 1000 ml 340 ml Balance 1000 ml 340 ml Intake Oral 1000 ml 340 ml # Voids 5 4 Laboratory Tests 11/14/17 05:30: White Blood Count 7.7, Red Blood Count 4.71, Hemoglobin 12.3, Hematocrit 37.7, Mean Corpuscular Volume 80, Mean Corpuscular Hemoglobin 26.2L, Mean Corpuscular Hemoglobin Concent 32.7, Red Cell Distribution Width 12.6, Platelet Count 160, Mean Platelet Volume 8.5, Neutrophils (%) (Auto) 47.5, Lymphocytes (%) (Auto) 40.1, Monocytes (%) (Auto) 7.6, Eosinophils (%) (Auto) 3.4H, Basophils (%) (Auto ) 1.4, Sodium Level 142, Potassium Level 3.7, Chloride Level 105, Carbon Dioxide Level 31, Anion Gap 6, Blood Urea Nitrogen 9, Creatinine 1.0, Estimat Glomerular Filtration Rate > 60, Glucose Level 110H, Calcium Level 8.4L Height (Feet): 5 Height (Inches): 4.00 Weight (Pounds): 200 Objective GENERAL: Alert, awake, and oriented. HEENT: PERRLA. NECK: Range of motion is decreased with tenderness to paracervical muscles. No adenopathy. LUNGS: Decreased breath sounds bilaterally. HEART: S1 and S2 regular. ABDOMEN: Obese. EXTREMITIES: No cyanosis. No clubbing. NEURO: No changes. Procedure: MRI C Spine no Contrast Indication: 52-year-old female with chronic low back and neck pain, history of cervical radiculopathy Technique: Sagittal T1 FLAIR PROPELLER, sagittal T2 PROPELLOR, sagittal STIR, axial T2 PROPELLER, axial 3D COSMIC ASPIR images were obtained through the cervical spine Comparison: none Findings: There is slight straightening of the normal cervical lordosis. Otherwise normal bony alignment. Vertebral body marrow signal is normal. Intrinsic cord signal is normal. At C2-3, no significant disc bulge or protrusion, spinal stenosis, or neural foraminal stenosis. At C3-4, circumferential annular bulge results in moderate narrowing of the spinal canal with slight impingement on the anterior aspect of the cord. There is mild narrowing of the bilateral neural foramina. The disc spaces preserved. At C4-5, there is mild degenerative disc narrowing. There is also right paracentral disc protrusion. The disc bulge results in mild spinal stenosis. The disc protrusion may impinge slightly upon the right lateral aspect of the anterior cord. The neural foramina demonstrate mild narrowing bilaterally At C5-6, there is minimal circumferential annular bulge. This results in borderline narrowing of the spinal canal. The neural foramina are preserved. At C6-7, there is circumferential annular bulge which results in mild to moderate narrowing of the spinal canal but no significant cord impingement. There is mild narrowing of the neural foramina bilaterally. At C7-T1, no significant disc bulge or protrusion, spinal stenosis, or neural foraminal stenosis. The disc space is preserved. There is equivocally a nodule in the right thyroid lobe which measures up to 17 mm in diameter if real. The included extraspinal soft tissues are otherwise unremarkable. Impression: Multifocal degenerative changes, as detailed above, including spinal stenosis at C3-4, spinal stenosis and right paracentral disc protrusion at C4-5 Incidental finding of possible right thyroid lobe nodule. Consider ultrasound for further evaluation Procedure: MRI L Spine no Contrast Indication: Chronic low back and neck pain Technique: Sagittal T1 and T2 fast spin echo, sagittal STIR, axial T1 and T2 fast spin-echo images of the lumbar spine Comparison: none Findings: There is a mild scoliotic deformity. Bony alignment is otherwise unremarkable. There are Modic type II endplate changes of the L5 vertebral body , and minimal Modic type I changes of the L2 inferior endplate. Vertebral body marrow signal is otherwise unremarkable. The conus medullaris terminates at the inferior aspect of L1. At L1-2, there is degenerative facet arthrosis on the left, which results in mild narrowing of the left neural foramen. No significant disc bulge or protrusion or spinal stenosis. At L2-3, there is mild degenerative disc narrowing. There is minimal circumferential annular bulge which results in borderline narrowing of the spinal canal, exacerbated by short pedicles. Facet arthrosis results in minimal compromise of the bilateral neural foramina. At L3-4, the disc space is preserved. No significant disc bulge or protrusion. Short pedicles and mild bilateral facet arthrosis result in borderline narrowing of the spinal canal. The neural foramina are preserved. At L4-5, the disc space is preserved. There is mild circumferential annular bulge. This, in combination with short pedicles, results in mild to moderate spinal stenosis at this level. There is also contribution by bilateral facet hypertrophy. The neural foramina are preserved. At L5-S1, the disc space is preserved. There is circumferential annular bulge, as well as right paracentral and some foraminal disc protrusion. There is also bilateral facet and ligamentum flavum hypertrophy. These factors result in at least moderate narrowing of the spinal canal, both AP and transverse. There is also likely significant impingement upon the right lateral recess There is moderate stenosis of the neural foramina bilaterally. There is a somewhat irregularly-shaped 14 x 7 mm cyst in the right kidney Impression: No acute bony trauma Degenerative changes, as detailed on a level by level basis above Mild scoliotic deformity Right renal cyst. In view of the somewhat irregular shape, further evaluation with ultrasound should be considered Abelardo Hawk Nov 14, 2017 07:50
[2017-11-14 08:00] VITALS: BP 147/64
[2017-11-14] MEDS: Heparin 5000 units/ml inj SUBQ SCH ×2 (09:00→21:00)
[2017-11-14 12:00] VITALS: BP 169/81
[2017-11-14 16:00] VITALS: BP 147/71
--- NOTE | 2017-11-14 16:06 | Consultation ---
History of Present Illness General Date patient seen: Nov 14, 2017 Chief Complaint: Pain Present Illness HPI 52-year-old female with hx of anxiety d/o and depression, who presents with chief complaint of low back pain. the pt has anxiety and panic attack like sxs. the pt is stated that the anxiety is "high" and anxiety Allergies: Coded Allergies: AMOXICILLIN (Verified Allergy, Severe, 01/03/17) HIVES HYDROMORPHONE (Verified Allergy, Severe, 01/03/17) GENERAL SKIN SORES PENICILLINS (Verified Allergy, Severe, 01/03/17) hives BUPROPION (Verified Allergy, Unknown, 01/08/10) IODINE (Verified Allergy, Unknown, 01/08/10) PAROXETINE (Verified Allergy, Unknown, 01/08/10) PHENYTOIN (Verified Allergy, Unknown, 01/08/10) Medication History Scheduled Alprazolam* (Xanax*), 2 MG ORAL FOUR, (Reported) Carisoprodol* (Soma*), 350 MG PO Q4, (Reported) Patient History Limited by: medical condition History Provided By: Patient, Medical Record, PMD Healthcare decision maker Resuscitation status Full Code Advanced Directive on File Past Medical/Surgical History Past Medical/Surgical History: (1) Itchy skin (2) Migraine (3) Osteoarthritis cervical spine (4) Replacement of IPG machine (5) Fibromyalgia (6) Chronic pain (7) Cervical radiculopathy (8) Opiate dependence, continuous (9) Physical tolerance to opiate drug (10) Reflex sympathetic dystrophy (11) Asthma (12) HTN (hypertension) (13) Complex regional pain syndrome (14) Intractable back pain Review of Systems Psychiatric: Reports: prior hx, anxiety, depressed feelings Physical Exam General Appearance: no apparent distress, alert Neurologic: oriented x 3, responsive, depressed affect Last 24 Hour Vital Signs Date Time Temp Pulse Resp B/P (MAP) Pulse Ox O2 Delivery O2 Flow Rate FiO2 11/14/17 14:18 98.4 11/14/17 12:00 98.4 52 18 169/81 (110) 99 98.4 11/14/17 09:00 Room Air 11/14/17 08:00 97.9 55 20 147/64 (91) 98 97.9 11/14/17 04:00 97.3 52 18 158/71 (100) 99 97.3 11/14/17 00:00 98.3 48 18 144/71 (95) 99 98.3 11/13/17 22:00 150/70 (96) 11/13/17 21:00 Room Air 11/13/17 20:00 99.0 53 19 202/68 (112) 98 99.0 Intake and Output 11/13/17 11/14/17 19:00 07:00 Intake Total 1000 ml 340 ml Balance 1000 ml 340 ml Intake Oral 1000 ml 340 ml # Voids 5 4 Laboratory Tests Test 11/14/17 05:30 White Blood Count 7.7 K/UL (4.8-10.8) Red Blood Count 4.71 M/UL (4.20-5.40) Hemoglobin 12.3 G/DL (12.0-16.0) Hematocrit 37.7 % (37.0-47.0) Mean Corpuscular Volume 80 FL (80-99) Mean Corpuscular Hemoglobin 26.2 PG (27.0-31.0) L Mean Corpuscular Hemoglobin Concent 32.7 G/DL (32.0-36.0) Red Cell Distribution Width 12.6 % (11.6-14.8) Platelet Count 160 K/UL (150-450) Mean Platelet Volume 8.5 FL (6.5-10.1) Neutrophils (%) (Auto) 47.5 % (45.0-75.0) Lymphocytes (%) (Auto) 40.1 % (20.0-45.0) Monocytes (%) (Auto) 7.6 % (1.0-10.0) Eosinophils (%) (Auto) 3.4 % (0.0-3.0) H Basophils (%) (Auto) 1.4 % (0.0-2.0) Sodium Level 142 MMOL/L (136-145) Potassium Level 3.7 MMOL/L (3.5-5.1) Chloride Level 105 MMOL/L (98-107) Carbon Dioxide Level 31 MMOL/L (21-32) Anion Gap 6 mmol/L (5-15) Blood Urea Nitrogen 9 mg/dL (7-18) Creatinine 1.0 MG/DL (0.55-1.30) Estimat Glomerular Filtration Rate > 60 mL/min (>60) Glucose Level 110 MG/DL (74-106) H Calcium Level 8.4 MG/DL (8.5-10.1) L Height (Feet): 5 Height (Inches): 4.00 Weight (Pounds): 200 Medications Current Medications Medications (Trade) Dose Ordered Sig/Aracelis Route PRN Reason Start Time Stop Time Status Last Admin Dose Admin Acetaminophen (Tylenol) 650 mg Q4H PRN ORAL fever 11/09/17 19:30 12/09/17 19:29 Al Hydroxide/Mg Hydroxide (Mylanta II) 30 ml Q6H PRN ORAL dyspepsia 11/09/17 19:30 12/09/17 19:29 Carisoprodol (Soma) 350 mg EVERY 8 HOURS ORAL 11/09/17 22:00 12/09/17 21:59 11/14/17 14:18 Chlorhexidine Gluconate (Janiya-Hex 2%) 1 applic DAILY@2000 TOPIC 11/09/17 20:00 12/09/17 19:59 11/12/17 21:05 Dextrose (Dextrose 50%) STAT PRN IV Hypoglycemia 11/09/17 19:30 12/09/17 19:29 Gadobutrol (Gadavist) 7.5 mmol NOW PRN IV Radiology Procedure 11/11/17 13:30 11/15/17 13:22 Gadobutrol (Gadavist) 7.5 mmol NOW PRN IV Radiology Procedure 11/11/17 13:30 11/15/17 13:22 Heparin Sodium (Porcine) (Heparin 5000 units/ml) 5,000 units EVERY 12 HOURS SUBQ 11/09/17 21:00 12/09/17 20:59 Hydralazine HCl (Apresoline) 50 mg Q6H PRN ORAL Systolic BP>160 11/09/17 20:45 12/09/17 20:44 Lorazepam (Ativan 2mg/ml 1ml) 0.5 mg Q4H PRN IV For Anxiety 11/09/17 19:30 11/16/17 19:29 Morphine Sulfate (Morphine Sulfate) 4 mg Q4H PRN IVP For Pain 11/09/17 20:30 11/16/17 20:29 11/14/17 14:18 Ondansetron HCl (Zofran) 4 mg Q6H PRN IVP Nausea & Vomiting 11/09/17 19:30 12/09/17 19:29 11/14/17 12:40 Polyethylene Glycol (Miralax) 17 gm HSPRN PRN ORAL Constipation 11/09/17 19:30 12/09/17 19:29 Zolpidem Tartrate (Ambien) 5 mg HSPRN PRN ORAL Insomnia 11/09/17 19:30 11/16/17 19:29 Assessment/Plan Assessment/Plan Anxiety d/o MDD The pt would like to take Xanax The pt reluctant to take ssris Mary Vieyra MD Nov 14, 2017 16:06
--- NOTE | 2017-11-14 17:38 | Internal Med Progress Note ---
Subjective Date of Service: Nov 14, 2017 Physician Name Gallegos,Micky Attending Physician Jesse Archer MD Current Medications Medications (Trade) Dose Ordered Sig/Aracelis Route PRN Reason Start Time Stop Time Status Last Admin Dose Admin Acetaminophen (Tylenol) 650 mg Q4H PRN ORAL fever 11/09/17 19:30 12/09/17 19:29 Al Hydroxide/Mg Hydroxide (Mylanta II) 30 ml Q6H PRN ORAL dyspepsia 11/09/17 19:30 12/09/17 19:29 Carisoprodol (Soma) 350 mg EVERY 8 HOURS ORAL 11/09/17 22:00 12/09/17 21:59 11/14/17 14:18 Chlorhexidine Gluconate (Janiya-Hex 2%) 1 applic DAILY@1999 TOPIC 11/09/17 20:00 12/09/17 19:59 11/12/17 21:05 Dextrose (Dextrose 50%) STAT PRN IV Hypoglycemia 11/09/17 19:30 12/09/17 19:29 Gadobutrol (Gadavist) 7.5 mmol NOW PRN IV Radiology Procedure 11/11/17 13:30 11/15/17 13:22 Gadobutrol (Gadavist) 7.5 mmol NOW PRN IV Radiology Procedure 11/11/17 13:30 11/15/17 13:22 Heparin Sodium (Porcine) (Heparin 5000 units/ml) 5,000 units EVERY 12 HOURS SUBQ 11/09/17 21:00 12/09/17 20:59 Hydralazine HCl (Apresoline) 50 mg Q6H PRN ORAL Systolic BP>160 11/09/17 20:45 12/09/17 20:44 Lorazepam (Ativan 2mg/ml 1ml) 0.5 mg Q4H PRN IV For Anxiety 11/09/17 19:30 11/16/17 19:29 Morphine Sulfate (Morphine Sulfate) 4 mg Q4H PRN IVP For Pain 11/09/17 20:30 11/16/17 20:29 11/14/17 14:18 Ondansetron HCl (Zofran) 4 mg Q6H PRN IVP Nausea & Vomiting 11/09/17 19:30 12/09/17 19:29 11/14/17 12:40 Polyethylene Glycol (Miralax) 17 gm HSPRN PRN ORAL Constipation 8/2/18 19:30 12/09/17 19:29 Zolpidem Tartrate (Ambien) 5 mg HSPRN PRN ORAL Insomnia 11/09/17 19:30 11/16/17 19:29 Allergies: Coded Allergies: AMOXICILLIN (Verified Allergy, Severe, 01/03/17) HIVES HYDROMORPHONE (Verified Allergy, Severe, 01/03/17) GENERAL SKIN SORES PENICILLINS (Verified Allergy, Severe, 01/03/17) hives BUPROPION (Verified Allergy, Unknown, 01/08/10) IODINE (Verified Allergy, Unknown, 01/08/10) PAROXETINE (Verified Allergy, Unknown, 01/08/10) PHENYTOIN (Verified Allergy, Unknown, 01/08/10) ROS Limited/Unobtainable: No Constitutional: Reports: no symptoms HEENT: Reports: no symptoms Cardiovascular: Reports: no symptoms Respiratory: Reports: no symptoms Gastrointestinal/Abdominal: Reports: no symptoms Genitourinary: Reports: no symptoms Neurologic/Psychiatric: Reports: no symptoms Subjective 52 YO F with chief complaint low back pain. Cover for Int Med-Dr Archer. Await MRI cervical and lumbar spine results. Refusing blood pressure meds and physical therapy Objective Last Vital Signs Date Time Temp Pulse Resp B/P (MAP) Pulse Ox O2 Delivery O2 Flow Rate FiO2 11/14/17 16:00 98.3 52 18 147/71 (96) 95 98.3 11/14/17 09:00 Room Air Laboratory Tests Test 11/14/17 05:30 White Blood Count 7.7 K/UL (4.8-10.8) Red Blood Count 4.71 M/UL (4.20-5.40) Hemoglobin 12.3 G/DL (12.0-16.0) Hematocrit 37.7 % (37.0-47.0) Mean Corpuscular Volume 80 FL (80-99) Mean Corpuscular Hemoglobin 26.2 PG (27.0-31.0) L Mean Corpuscular Hemoglobin Concent 32.7 G/DL (32.0-36.0) Red Cell Distribution Width 12.6 % (11.6-14.8) Platelet Count 160 K/UL (150-450) Mean Platelet Volume 8.5 FL (6.5-10.1) Neutrophils (%) (Auto) 47.5 % (45.0-75.0) Lymphocytes (%) (Auto) 40.1 % (20.0-45.0) Monocytes (%) (Auto) 7.6 % (1.0-10.0) Eosinophils (%) (Auto) 3.4 % (0.0-3.0) H Basophils (%) (Auto) 1.4 % (0.0-2.0) Sodium Level 142 MMOL/L (136-145) Potassium Level 3.7 MMOL/L (3.5-5.1) Chloride Level 105 MMOL/L (98-107) Carbon Dioxide Level 31 MMOL/L (21-32) Anion Gap 6 mmol/L (5-15) Blood Urea Nitrogen 9 mg/dL (7-18) Creatinine 1.0 MG/DL (0.55-1.30) Estimat Glomerular Filtration Rate > 60 mL/min (>60) Glucose Level 110 MG/DL (74-106) H Calcium Level 8.4 MG/DL (8.5-10.1) L Intake and Output 11/13/17 11/14/17 19:00 07:00 Intake Total 1000 ml 340 ml Balance 1000 ml 340 ml Intake Oral 1000 ml 340 ml # Voids 5 4 Objective General Appearance: WD/WN, no apparent distress, alert EENT: PERRL/EOMI, normal ENT inspection Neck: non-tender, normal alignment, supple, normal inspection Cardiovascular: normal peripheral pulses, normal rate, regular rhythm, no gallop/murmur, no JVD Respiratory/Chest: chest wall non-tender, lungs clear, normal breath sounds, no respiratory distress, no accessory muscle use Abdomen: normal bowel sounds, non tender, soft, no organomegaly, no mass Extremities: normal range of motion, non-tender 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 See pain management consult. Awiat epidural injection by Dr Nelson as outpatient. (6) Cervical radiculopathy (7) Opiate dependence, continuous Status: stable Assessment/Plan Discharge am 8/8/18. F/U Dr Nelson for outpatient epidural injection Micky Gallegos MD Nov 14, 2017 17:38
[2017-11-14 20:00] VITALS: BP 159/87
[2017-11-14] MEDS: Dyna-Hex 2% Top Sol 2oz TOPIC SCH (20:00)
[2017-11-15] VITALS: BP 152/67
[2017-11-15 04:00] VITALS: BP 154/76
[2017-11-15] MEDS: Morphine Sulfate 4mg/ml Inj (IV USE ONLY) IVP PRN ×4 (04:48→20:10)
[2017-11-15 08:00] VITALS: BP 155/63
[2017-11-15] MEDS: Heparin 5000 units/ml inj SUBQ SCH ×2 (08:06→20:11)
[2017-11-15 12:00] VITALS: BP 155/69
--- NOTE | 2017-11-15 13:00 | Internal Med Progress Note ---
Subjective Date of Service: Nov 15, 2017 Physician Name Gallegos,Micky Attending Physician Jesse Archer MD Current Medications Medications (Trade) Dose Ordered Sig/Aracelis Route PRN Reason Start Time Stop Time Status Last Admin Dose Admin Acetaminophen (Tylenol) 650 mg Q4H PRN ORAL fever 11/09/17 19:30 12/09/17 19:29 Al Hydroxide/Mg Hydroxide (Mylanta II) 30 ml Q6H PRN ORAL dyspepsia 11/09/17 19:30 12/09/17 19:29 Carisoprodol (Soma) 350 mg EVERY 8 HOURS ORAL 11/09/17 22:00 12/09/17 21:59 11/15/17 05:37 Chlorhexidine Gluconate (Janiya-Hex 2%) 1 applic DAILY@1999 TOPIC 11/09/17 20:00 12/09/17 19:59 11/12/17 21:05 Dextrose (Dextrose 50%) STAT PRN IV Hypoglycemia 11/09/17 19:30 12/09/17 19:29 Gadobutrol (Gadavist) 7.5 mmol NOW PRN IV Radiology Procedure 11/11/17 13:30 11/15/17 13:22 Gadobutrol (Gadavist) 7.5 mmol NOW PRN IV Radiology Procedure 11/11/17 13:30 11/15/17 13:22 Heparin Sodium (Porcine) (Heparin 5000 units/ml) 5,000 units EVERY 12 HOURS SUBQ 11/09/17 21:00 12/09/17 20:59 Hydralazine HCl (Apresoline) 50 mg Q6H PRN ORAL Systolic BP>160 11/09/17 20:45 12/09/17 20:44 Lorazepam (Ativan 2mg/ml 1ml) 0.5 mg Q4H PRN IV For Anxiety 11/09/17 19:30 11/16/17 19:29 Morphine Sulfate (Morphine Sulfate) 4 mg Q4H PRN IVP For Pain 11/09/17 20:30 11/16/17 20:29 11/15/17 09:15 Ondansetron HCl (Zofran) 4 mg Q6H PRN IVP Nausea & Vomiting 11/09/17 19:30 12/09/17 19:29 11/15/17 09:15 Polyethylene Glycol (Miralax) 17 gm HSPRN PRN ORAL Constipation 11/09/17 19:30 12/09/17 19:29 Zolpidem Tartrate (Ambien) 5 mg HSPRN PRN ORAL Insomnia 11/09/17 19:30 11/16/17 19:29 Allergies: Coded Allergies: AMOXICILLIN (Verified Allergy, Severe, 01/03/17) HIVES HYDROMORPHONE (Verified Allergy, Severe, 01/03/17) GENERAL SKIN SORES PENICILLINS (Verified Allergy, Severe, 01/03/17) hives BUPROPION (Verified Allergy, Unknown, 01/08/10) IODINE (Verified Allergy, Unknown, 01/08/10) PAROXETINE (Verified Allergy, Unknown, 01/08/10) PHENYTOIN (Verified Allergy, Unknown, 01/08/10) ROS Limited/Unobtainable: No Constitutional: Reports: no symptoms HEENT: Reports: no symptoms Cardiovascular: Reports: no symptoms Respiratory: Reports: no symptoms Gastrointestinal/Abdominal: Reports: no symptoms Genitourinary: Reports: no symptoms Neurologic/Psychiatric: Reports: no symptoms Subjective 52 YO F with chief complaint low back pain. Cover for Int Med-Dr Arcehr. Await MRI cervical and lumbar spine results. Refusing blood pressure meds and physical therapy Objective Last Vital Signs Date Time Temp Pulse Resp B/P (MAP) Pulse Ox O2 Delivery O2 Flow Rate FiO2 11/15/17 12:00 98.2 55 18 155/69 (97) 97 98.2 11/15/17 09:00 Room Air Intake and Output 11/14/17 11/15/17 19:00 07:00 Intake Total 600 ml 500 ml Balance 600 ml 500 ml Intake Oral 600 ml 500 ml # Voids 3 Objective General Appearance: WD/WN, no apparent distress, alert EENT: PERRL/EOMI, normal ENT inspection Neck: non-tender, normal alignment, supple, normal inspection Cardiovascular: normal peripheral pulses, normal rate, regular rhythm, no gallop/murmur, no JVD Respiratory/Chest: chest wall non-tender, lungs clear, normal breath sounds, no respiratory distress, no accessory muscle use Abdomen: normal bowel sounds, non tender, soft, no organomegaly, no mass Extremities: normal range of motion, non-tender 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 See pain management consult. Awiat epidural injection by Dr Nelson as outpatient. (6) Cervical radiculopathy (7) Opiate dependence, continuous Assessment/Plan Discharge today 11/15/17. F/U Dr Nelson for outpatient epidural injection 11/16/17 @ 0730. Micky Gallegos MD Nov 15, 2017 13:00
[2017-11-15] MEDS ORDERED: ALPRAZolam 0.25mg tab ORAL PRN (14:45)
--- NOTE | 2017-11-15 14:48 | General Progress Note ---
Assessment/Plan Status: stable Assessment/Plan Anxiety d/o MDD cont Xanax The pt reluctant to take ssris dc ativan Subjective Date patient seen: Nov 15, 2017 Neurologic/Psychiatric: Reports: anxiety, depressed, emotional problems Allergies: Coded Allergies: AMOXICILLIN (Verified Allergy, Severe, 01/03/17) HIVES HYDROMORPHONE (Verified Allergy, Severe, 01/03/17) GENERAL SKIN SORES PENICILLINS (Verified Allergy, Severe, 01/03/17) hives BUPROPION (Verified Allergy, Unknown, 01/08/10) IODINE (Verified Allergy, Unknown, 01/08/10) PAROXETINE (Verified Allergy, Unknown, 01/08/10) PHENYTOIN (Verified Allergy, Unknown, 01/08/10) Objective Last 24 Hour Vital Signs Date Time Temp Pulse Resp B/P (MAP) Pulse Ox O2 Delivery O2 Flow Rate FiO2 11/15/17 12:00 98.2 55 18 155/69 (97) 97 98.2 11/15/17 09:00 Room Air 11/15/17 08:00 97.8 57 20 155/63 (93) 98 97.8 11/15/17 04:00 97.0 47 19 154/76 (102) 99 97.0 11/15/17 00:00 96.4 50 18 152/67 (95) 99 96.4 11/14/17 21:00 Room Air 11/14/17 20:00 97.7 52 19 159/87 (111) 99 97.7 11/14/17 16:00 98.3 52 18 147/71 (96) 95 98.3 Intake and Output 11/14/17 11/15/17 19:00 07:00 Intake Total 600 ml 500 ml Balance 600 ml 500 ml Intake Oral 600 ml 500 ml # Voids 3 Height (Feet): 5 Height (Inches): 4.00 Weight (Pounds): 204 General Appearance: WD/WN, no apparent distress, alert Neurologic: oriented x 3, responsive, depressed affect Mary Vieyra MD Nov 15, 2017 14:47
[2017-11-15 16:00] VITALS: BP 176/71
[2017-11-15] MEDS: Dyna-Hex 2% Top Sol 2oz TOPIC SCH (20:09)
[2017-11-15 20:13] VITALS: BP 147/68
[2017-11-16] VITALS: BP 141/76
[2017-11-16] MEDS: Morphine Sulfate 4mg/ml Inj (IV USE ONLY) IVP PRN ×4 (02:42→17:56)
[2017-11-16 04:00] VITALS: BP 120/75
[2017-11-16 08:00] VITALS: BP 155/75
[2017-11-16] MEDS: Heparin 5000 units/ml inj SUBQ SCH ×2 (09:00→21:00)
[2017-11-16 12:00] VITALS: BP 177/76
--- NOTE | 2017-11-16 12:41 | General Progress Note ---
Assessment/Plan Status: stable, progressing Assessment/Plan Anxiety d/o MDD cont Xanax The pt reluctant to take ssris dc ativan Subjective Date patient seen: Nov 16, 2017 Neurologic/Psychiatric: Reports: anxiety, depressed, emotional problems Allergies: Coded Allergies: AMOXICILLIN (Verified Allergy, Severe, 01/03/17) HIVES HYDROMORPHONE (Verified Allergy, Severe, 01/03/17) GENERAL SKIN SORES PENICILLINS (Verified Allergy, Severe, 01/03/17) hives BUPROPION (Verified Allergy, Unknown, 01/08/10) IODINE (Verified Allergy, Unknown, 01/08/10) PAROXETINE (Verified Allergy, Unknown, 01/08/10) PHENYTOIN (Verified Allergy, Unknown, 01/08/10) Objective Last 24 Hour Vital Signs Date Time Temp Pulse Resp B/P (MAP) Pulse Ox O2 Delivery O2 Flow Rate FiO2 11/16/17 12:00 98.0 50 20 177/76 (109) 98 98.0 11/16/17 10:03 98.7 11/16/17 09:33 98.7 11/16/17 08:45 Room Air 11/16/17 08:00 97.8 68 20 155/75 (101) 97 97.8 11/16/17 06:54 98.7 11/16/17 05:48 98.7 11/16/17 04:00 98.7 82 18 120/75 (90) 96 98.7 11/16/17 02:42 97.1 11/16/17 00:00 97.1 60 19 141/76 (97) 98 97.1 11/15/17 22:09 97.7 11/15/17 20:31 Room Air 11/15/17 20:13 97.7 57 19 147/68 (94) 98 97.7 11/15/17 20:10 97.3 11/15/17 16:00 97.3 56 18 176/71 (106) 98 97.3 Intake and Output 11/15/17 11/16/17 19:00 07:00 Intake Total 1080 ml Balance 1080 ml Intake Oral 1080 ml # Voids 5 2 Height (Feet): 5 Height (Inches): 4.00 Weight (Pounds): 204 General Appearance: no apparent distress, alert Neurologic: oriented x 3, responsive, depressed affect Mary Vieyra MD Nov 16, 2017 12:41
[2017-11-16 15:54] VITALS: BP 191/101
--- NOTE | 2017-11-16 17:19 | Internal Med Progress Note ---
Subjective Date of Service: Nov 16, 2017 Physician Name RosyMicky Attending Physician Jesse Archer MD Current Medications Medications (Trade) Dose Ordered Sig/Aracelis Route PRN Reason Start Time Stop Time Status Last Admin Dose Admin Acetaminophen (Tylenol) 650 mg Q4H PRN ORAL fever 11/09/17 19:30 12/09/17 19:29 Al Hydroxide/Mg Hydroxide (Mylanta II) 30 ml Q6H PRN ORAL dyspepsia 11/09/17 19:30 12/09/17 19:29 Alprazolam (Xanax) 0.25 mg Q8H PRN ORAL Agitation 11/15/17 14:45 11/22/17 14:44 Carisoprodol (Soma) 350 mg EVERY 8 HOURS ORAL 11/09/17 22:00 12/09/17 21:59 11/16/17 15:04 Chlorhexidine Gluconate (Janiya-Hex 2%) 1 applic DAILY@2000 TOPIC 11/09/17 20:00 12/09/17 19:59 11/15/17 20:09 Dextrose (Dextrose 50%) STAT PRN IV Hypoglycemia 11/09/17 19:30 12/09/17 19:29 Heparin Sodium (Porcine) (Heparin 5000 units/ml) 5,000 units EVERY 12 HOURS SUBQ 11/09/17 21:00 12/09/17 20:59 Hydralazine HCl (Apresoline) 50 mg Q6H PRN ORAL Systolic BP>160 11/09/17 20:45 12/09/17 20:44 Morphine Sulfate (Morphine Sulfate) 4 mg Q4H PRN IVP For Pain 11/09/17 20:30 11/16/17 20:29 11/16/17 13:48 Ondansetron HCl (Zofran) 4 mg Q6H PRN IVP Nausea & Vomiting 11/09/17 19:30 12/09/17 19:29 11/16/17 15:13 Polyethylene Glycol (Miralax) 17 gm HSPRN PRN ORAL Constipation 11/09/17 19:30 12/09/17 19:29 Zolpidem Tartrate (Ambien) 5 mg HSPRN PRN ORAL Insomnia 11/09/17 19:30 11/16/17 19:29 Allergies: Coded Allergies: AMOXICILLIN (Verified Allergy, Severe, 01/03/17) HIVES HYDROMORPHONE (Verified Allergy, Severe, 01/03/17) GENERAL SKIN SORES PENICILLINS (Verified Allergy, Severe, 01/03/17) hives BUPROPION (Verified Allergy, Unknown, 01/08/10) IODINE (Verified Allergy, Unknown, 01/08/10) PAROXETINE (Verified Allergy, Unknown, 01/08/10) PHENYTOIN (Verified Allergy, Unknown, 01/08/10) ROS Limited/Unobtainable: No Constitutional: Reports: no symptoms HEENT: Reports: no symptoms Cardiovascular: Reports: no symptoms Respiratory: Reports: no symptoms Gastrointestinal/Abdominal: Reports: no symptoms Genitourinary: Reports: no symptoms Neurologic/Psychiatric: Reports: no symptoms Subjective 52 YO F with chief complaint low back pain. Cover for Int Med-Dr Archer. Await MRI cervical and lumbar spine results. Refusing blood pressure meds and physical therapy. Await epidural injection tonight 11/16/17. Objective Last Vital Signs Date Time Temp Pulse Resp B/P (MAP) Pulse Ox O2 Delivery O2 Flow Rate FiO2 11/16/17 16:03 97.3 11/16/17 15:54 55 20 191/101 (131) 98 11/16/17 08:45 Room Air Intake and Output 11/15/17 11/16/17 19:00 07:00 Intake Total 1080 ml Balance 1080 ml Intake Oral 1080 ml # Voids 5 2 Objective General Appearance: WD/WN, no apparent distress, alert EENT: PERRL/EOMI, normal ENT inspection Neck: non-tender, normal alignment, supple, normal inspection Cardiovascular: normal peripheral pulses, normal rate, regular rhythm, no gallop/murmur, no JVD Respiratory/Chest: chest wall non-tender, lungs clear, normal breath sounds, no respiratory distress, no accessory muscle use Abdomen: normal bowel sounds, non tender, soft, no organomegaly, no mass Extremities: normal range of motion, non-tender 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 See pain management consult. Await epidural injection by Dr Omar mathis at 1930 (6) Cervical radiculopathy (7) Opiate dependence, continuous Status: not improved Assessment/Plan Plan to discharge in am 11/17/17 Micky Gallegos MD Nov 16, 2017 17:19
[2017-11-16] MEDS ORDERED: Bupivacaine w/Epi 0.25% 30ml Vial INJ ONE (18:45)
[2017-11-16] MEDS ORDERED: Isovue-M 300 15ml INJ ONE (18:45)
[2017-11-16] MEDS ORDERED: Kenalog-40 1ml Vial IARTIC PRN (18:45)
[2017-11-16] MEDS ORDERED: Lidocaine 2% MPF 5ml Vial INJ ONE (18:45)
[2017-11-16 20:00] VITALS: BP 154/101
[2017-11-16] MEDS: Dyna-Hex 2% Top Sol 2oz TOPIC SCH (21:01)
--- NOTE | 2017-11-17 12:52 | Discharge Summary ---
Discharge Summary Discharge Summary _ DATE OF ADMISSION: 11/09/2017 DATE OF DISCHARGE: 11/16/2017 CONSULTANTS: Dr. Mary Smith BRIEF HOSPITAL COURSE: Patient is a 52-year-old -[place] female, who presented with chief complaint of low back pain. 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 Patient was awaiting authorization for epidural injections. She went to court on Monday, 2017. The ride was "bumpy". She began to have low back pain that radiated to bilateral legs. Symptoms became increasingly worse over the last 2 days and pain has become 10 out of 10 in intensity. She has medical history significant for hypertension, asthma, cervical radiculopathy, fibromyalgia, reflex sympathetic dystrophy and complex regional pain syndrome. On evaluation at ED, vital signs were stable. Blood work was unremarkable. She continued to have excruciating pain and the pain was uncontrolled. She does not have medications at home. She was then admitted for pain control. PICC line was inserted. Pain specialist was consulted. she was continued on morphine and intrathecal morphine pump. MRI of the lumbar spine showed no acute bony trauma. There was degenerative changes and mild scoliotic deformity seen. Cervical spine MRI showed multifocal degenerative changes including spinal stenosis at C3-C4 and a right paracentral disc protrusion at C4-C5. Patient was depressed and has episodes of anxiety. She was given Xanax. Ativan was discontinued. She was reluctant to take SSRIs. She was refusing blood pressure medications and physical therapy. She was referred for epidural injections, however, procedure was not done. She was eventually discharged home to continue outpatient pain management. FINAL DIAGNOSES: Reflex sympathetic dystrophy Complex regional pain syndrome Intractable back pain Cervical and lumbar radiculopathy Opiate dependence Hypertension Asthma Anxiety disorder Major depressive disorder Cervical spondylosis Cervical and lumbar degenerative's disease DISPOSITION: She was discharged home. DISCHARGE MEDICATIONS: Refer to Discharge Medication List. DISCHARGE INSTRUCTIONS: Follow up in the office this week. Needs outpatient pain management. I have been assigned to dictate discharge summary on this account, and I was not involved in the patient's management. Ainsley Lan NP Nov 17, 2017 12:52
== END 2017-11-16 21:45 | disposition home or self-care (01) | DRG 74 ==
LOC: EMR 15:51 → 4W 16:41 → EDBEDREQ 18:02 → 4E 21:09
DX: G90.59 Complex regional pain syndrome I of other specified site (principal); F11.20 Opioid dependence, uncomplicated; M50.10 Cervical disc disorder with radiculopathy, unspecified cervical region; M51.16 Intervertebral disc disorders with radiculopathy, lumbar region; I10 Essential (primary) hypertension; Z88.8 Allergy status to other drugs, medicaments and biological substances; Z88.6 Allergy status to analgesic agent; Z88.1 Allergy status to other antibiotic agents; Z91.041 Radiographic dye allergy status; Z85.42 Personal history of malignant neoplasm of other parts of uterus; M79.7 Fibromyalgia; J45.909 Unspecified asthma, uncomplicated; F32.9 Major depressive disorder, single episode, unspecified; F41.9 Anxiety disorder, unspecified
CPT/HCPCS: 36415; 36569; 72141; 72148; 76937; 80048; 80053; 84443; 85025; 93005; J2405

== ENCOUNTER 2017-12-26 13:31 | Outpatient (CLI) | payer OTHER, MEDICARE ==
[~2017-12-26] VITALS: Ht 162.6 cm; Wt 70.3 kg
[~2017-12-26 13:31] MED LIST changes: +Heparin 2000 units/Ns 1000ml INJ ONE; +Lidocaine 1% Plain 30 ml INJ ONE
--- NOTE | 2017-12-26 14:34 | Pre-Procedure Note/Attestation ---
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 I attest that, if there was a reasonable possibility of needing a blood transfusion, the patient (or the patient's legal appeals representative) was given the [facility] standardized written summary, pursuant to the Mahendra Betty Blood Safety Act ([place] Health and Safety Code # 1645, as amended). I attest that I re-evaluated the patient just prior to the surgery and that there has been no change in the patient's H&P, except as documented below: Nadeem Torres MD Dec 26, 2017 14:34
--- NOTE | 2017-12-26 17:55 | Diagnostic Imaging Report ---
Indications: Needs long-term IV access Technique: Ultrasound confirms patent compressible right basilic vein. Total sterile technique, including sterile probe cover and sterile gel, hat, mask, sterile gown, large sterile drape, and preparation with 2% chlorhexidine utilized. Local anesthesia with 1% lidocaine. Under real-time ultrasound guidance, puncture basilic vein using 21-gauge needle, documented and archived, passage 0.018 guidewire under direct fluoroscopy, which was used to determine appropriate catheter length, exchange for 5 Georgian peel-away sheath. 5 Georgian Bard dual-lumen power PICC cut to 41 cm. It was inserted through the peel-away sheath. Peel-away sheath and guidewire removed. Catheter fixed to the skin. Both catheter ports aspirated and flushed. Patient tolerated procedure well, without immediate complication. Digital radiograph documents satisfactory catheter tip position, at the cavoatrial junction. Total fluoroscopy time 2.8 minutes. Total dose area product 45 dGycm2 Total number of images: 1 Impression: Successful placement of right arm PICC under sonographic and fluoroscopic guidance, as described above.
== END 2017-12-26 15:31 | disposition home or self-care (01) ==
LOC: RAD 13:31
DX: Z45.2 Encounter for adjustment and management of vascular access device (principal); I99.8 Other disorder of circulatory system
CPT/HCPCS: 36569; 76937; J1644; J2001